=== PATIENT | female | born 1950 | race African-American/Black ===

== ENCOUNTER 2019-02-13 00:35 | Inpatient (IN) | payer MEDICARE, OTHER ==
[~2019-02-13] VITALS: Ht 160 cm; Wt 79.4 kg
[2019-02-13 01:01] LABS: BASOPHILS % 1.3 % (0.0-2.0); EOSINOPHILS % 1.9 % (0.0-5.0); HEMATOCRIT. 41.4 % (36.0-48.0); HEMOGLOBIN. 13.9 g/dL (12.0-16.0); MEAN CORPUSCULAR HEMOGLOBIN 29.7 pg (28.0-32.0); MEAN CORPUSCULAR VOLUME 88.6 fL (81.0-99.0); MEAN PLATELET VOLUME 8.5 fl (7.4-10.4); MONOCYTES % 7.7 % (2.0-8.0); NEUTROPHILS % 46.1 % (40.0-76.0); PLATELET 273 x1000/uL (130-400); RED BLOOD CELL COUNT 4.68 mill/uL (4.2-5.4); RED CELL DISTRIBUTION WIDTH 13.9 % (11.6-14.6)
[2019-02-13 01:08] LABS: CHLORIDE 108 mEq/L (98-107)
[2019-02-13 01:09] LABS: PROTHROMBIN TIME 10.1 sec (9.6-11.0)
[2019-02-13 01:12] LABS: ETHANOL BLOOD < 10 mg/dL
[2019-02-13 01:23] LABS: LDL CHOLESTEROL 166 mg/dL (5-100)
[2019-02-13] MEDS ORDERED: HYDRALAZINE 20MG/ML VIAL IV ONE (02:45)
[2019-02-13 03:43] LABS: CLARITY URINE CLEAR (CLEAR); COLOR URINE YELLOW (YELLOW); KETONES URINE NEGATIVE (NEGATIVE); LEUKOCYTE ESTERASE URINE 2+ (NEGATIVE); NITRITE URINE NEGATIVE (NEGATIVE); OCCULT BLOOD URINE NEGATIVE (NEGATIVE); PH URINE 7.5 (4.5-8.0); PROTEIN URINE NEGATIVE (NEGATIVE); SPECIFIC GRAVITY URINE 1.004 (1.005-1.030); UROBILINOGEN URINE 0.2 E.U./dL (0.2-1.0)
[2019-02-13 03:55] LABS: *AMPHETAMINES SCREEN URINE NEGATIVE (NEGATIVE); *BARBITURATES SCREEN URINE NEGATIVE (NEGATIVE); *BENZODIAZEPINES SCREEN URINE NEGATIVE (NEGATIVE); *COCAINE SCREEN URINE NEGATIVE (NEGATIVE); METHADONE URINE SCREEN NEGATIVE (NEGATIVE); OPIATES URINE SCREEN NEGATIVE (NEGATIVE)
[2019-02-13 03:56] LABS: CANNABINOID URINE SCREEN NEGATIVE (NEGATIVE); PHENCYCLIDINE URINE SCREEN NEGATIVE (NEGATIVE)
[2019-02-13 06:10] VITALS: BP 150/60
[2019-02-13] MEDS ORDERED: MAGNESIUM/ALUMINUM HYDROXIDE/SIMETHICONE 30ML UDC PO PRN (07:30)
[2019-02-13] MEDS ORDERED: DIPHENHYDRAMINE 50MG/ML VIAL IV PRN (07:30)
[2019-02-13] MEDS ORDERED: GUAIFENESIN 200MG/10ML SUGAR FREE UDC PO PRN (07:30)
[2019-02-13] MEDS ORDERED: CLONIDINE 0.1MG TABLET PO PRN (07:30)
[2019-02-13] MEDS ORDERED: IPRATROPIUM/ALBUTEROL 0.5-3(2.5)MG/3ML NEB INH PRN (07:30)
[2019-02-13] MEDS ORDERED: LORAZEPAM 2MG/ML CPJ IV PRN (07:30)
[2019-02-13 08:00] VITALS: BP 108/62
[2019-02-13 08:07] VITALS: BP 108/62
[2019-02-13] MEDS ORDERED: ASPI-1158 MT (08:19)
[2019-02-13] MEDS ORDERED: LABE200T28 MT (08:19)
[2019-02-13] MEDS ORDERED: LOSA100T14 MT (08:19)
[2019-02-13] MEDS ORDERED: LEVO50TA8 MT (08:19)
[2019-02-13] MEDS: ASPIRIN 81MG EC TABLET PO SCH (09:02)
[2019-02-13] MEDS: ENOXAPARIN 40MG/0.4ML SYR SUBCUT SCH (09:02)
[2019-02-13 12:00] VITALS: BP 106/59
[2019-02-13] MEDS: SODIUM CHLORIDE 0.9% INJ 3ML FLUSH IVF SCH ×2 (14:40→22:59)
[2019-02-13 16:00] VITALS: BP 106/67
[2019-02-13 17:01] LABS: CREATINE KINASE 85 IU/L (26-192)
[2019-02-13 20:00] VITALS: BP 138/81
[2019-02-13] MEDS: ACETAMINOPHEN 325MG TABLET PO PRN (20:09)
[2019-02-13] MEDS: ATORVASTATIN CALCIUM 40MG TABLET PO SCH (20:10)
[2019-02-14] VITALS: BP 128/70
[2019-02-14 01:02] LABS: CREATINE KINASE 69 IU/L (26-192)
[2019-02-14 01:03] LABS: CREATINE KINASE MB FRACTION < 1.0 ng/mL (0.5-3.6)
[2019-02-14 04:00] VITALS: BP 134/69
[2019-02-14] MEDS: SODIUM CHLORIDE 0.9% INJ 3ML FLUSH IVF SCH ×3 (05:46→21:31)
[2019-02-14 06:21] LABS: BASOPHILS % 0.7 % (0.0-2.0); EOSINOPHILS % 1.7 % (0.0-5.0); HEMATOCRIT. 36.6 % (36.0-48.0); HEMOGLOBIN. 12.4 g/dL (12.0-16.0); LYMPHOCYTES % 45.6 % (20.0-50.0); MEAN CORPUSCULAR HEMOGLOBIN 29.9 pg (28.0-32.0); MEAN CORPUSCULAR VOLUME 88.6 fL (81.0-99.0); MEAN PLATELET VOLUME 8.7 fl (7.4-10.4); PLATELET 266 x1000/uL (130-400); RED BLOOD CELL COUNT 4.14 mill/uL (4.2-5.4); RED CELL DISTRIBUTION WIDTH 14.1 % (11.6-14.6)
[2019-02-14 06:48] LABS: CHLORIDE 107 mEq/L (98-107)
[2019-02-14 06:59] LABS: HDL CHOLESTEROL 59 mg/dL (40-59); T4 FREE 0.94 ng/dL (0.76-1.46)
[2019-02-14 07:00] LABS: LDL CHOLESTEROL 132 mg/dL (5-100)
[2019-02-14 08:00] VITALS: BP 134/87
[2019-02-14] MEDS: ASPIRIN 81MG EC TABLET PO SCH (08:06)
[2019-02-14] MEDS: ACETAMINOPHEN 325MG TABLET PO PRN ×2 (08:06→21:08)
[2019-02-14] MEDS: ENOXAPARIN 40MG/0.4ML SYR SUBCUT SCH (08:06)
[2019-02-14] MEDS: ATORVASTATIN CALCIUM 40MG TABLET PO SCH (20:57)
[2019-02-15] VITALS (7 sets, daily range): BP systolic 164–213; BP diastolic 85–113
[2019-02-15] MEDS: SODIUM CHLORIDE 0.9% INJ 3ML FLUSH IVF SCH (05:15)
[2019-02-15] MEDS: ACETAMINOPHEN 325MG TABLET PO PRN ×2 (07:49→17:25)
[2019-02-15] MEDS: ENOXAPARIN 40MG/0.4ML SYR SUBCUT SCH (08:59)
[2019-02-15] MEDS: ASPIRIN 81MG EC TABLET PO SCH (08:59)
[2019-02-15] MEDS: HYDRALAZINE 20MG/ML VIAL IV PRN ×2 (09:00→17:17)
[2019-02-15] MEDS: ONDANSETRON HCL 4MG/2ML INJ IV PRN ×3 (10:01→22:45)
[2019-02-15] MEDS: BLOOD SUGAR DIAGNOSTIC STRIP TEST SCH ×3 (11:10→21:24)
[2019-02-15 11:23] LABS: PROTHROMBIN TIME 10.1 sec (9.6-11.0)
[2019-02-15] MEDS ORDERED: HYDRALAZINE 20MG/ML VIAL IV SCH (11:48)
[2019-02-15 11:54] LABS: BG BASE EXCESS -0.1 mmol/L (-2.0-2.0); BG CARBOXYHEMOGLOBIN 1.1 % (0.5-1.5); BG DEOXYHEMOGLOBIN 6.9 % (0.0-5.0); BG METHEMOGLOBIN 0.3 % (0.0-1.5); BG OXYHEMOGLOBIN 91.7 % (94.0-97.0); BG PCO2 42.4 mmHg (35.0-45.0); BG PH 7.388 (7.350-7.450); BG PO2 64.6 mmHg (75.0-100.0); BG SAMPLE SITE RIGHT RADIAL; BG TOTAL HEMOGLOBIN 14.4 g/dL (12.0-18.0); BG VENT MODE NASAL CANNULA
[2019-02-15] MEDS: CLOPIDOGREL 75MG TABLET PO SCH (11:56)
[2019-02-15] MEDS ORDERED: LORAZEPAM 2MG/ML CPJ IV PRN (12:00)
[2019-02-15] MEDS ORDERED: BLOOD SUGAR DIAGNOSTIC STRIP TEST SCH (12:10)
[2019-02-15] MEDS ORDERED: IOHEXOL-350 100 ML BOTTLE ONE (14:12)
[2019-02-15] MEDS ORDERED: CLONIDINE 0.2MG TABLET PO NR (19:30)
[2019-02-15] MEDS: CLONIDINE 0.1MG TABLET PO PRN (20:38)
[2019-02-15] MEDS: AMITRIPTYLINE 25MG TABLET PO SCH (21:12)
[2019-02-15] MEDS: METOPROLOL TARTRATE 25MG TABLET PO SCH (21:12)
[2019-02-15] MEDS: ATORVASTATIN CALCIUM 40MG TABLET PO SCH (21:12)
[2019-02-15] MEDS ORDERED: DEXTROSE 50% WATER 50ML SYRINGE IV PRN (21:30)
[2019-02-15 21:45] LABS: HEMATOCRIT. 39.7 % (36.0-48.0); HEMOGLOBIN. 13.5 g/dL (12.0-16.0); MEAN CORPUSCULAR HEMOGLOBIN 29.9 pg (28.0-32.0); MEAN CORPUSCULAR VOLUME 88.2 fL (81.0-99.0); MEAN PLATELET VOLUME 8.8 fl (7.4-10.4); PLATELET 278 x1000/uL (130-400); RED BLOOD CELL COUNT 4.51 mill/uL (4.2-5.4); RED CELL DISTRIBUTION WIDTH 13.9 % (11.6-14.6)
[2019-02-15 21:52] LABS: CHLORIDE 104 mEq/L (98-107)
[2019-02-15 22:28] LABS: PLATELET ESTIMATE NORMAL
[2019-02-15] MEDS: TRAMADOL 50MG TABLET PO PRN (22:46)
[2019-02-16] VITALS (12 sets, daily range): BP systolic 119–171; BP diastolic 67–94
[2019-02-16] MEDS: HYDRALAZINE 20MG/ML VIAL IV PRN (05:17)
[2019-02-16] MEDS: ONDANSETRON HCL 4MG/2ML INJ IV PRN (05:17)
[2019-02-16] MEDS: TRAMADOL 50MG TABLET PO PRN ×2 (05:18→20:06)
[2019-02-16] MEDS: CLONIDINE 0.1MG TABLET PO PRN (06:53)
[2019-02-16] MEDS: BLOOD SUGAR DIAGNOSTIC STRIP TEST SCH ×4 (06:54→21:00)
[2019-02-16] MEDS: CLOPIDOGREL 75MG TABLET PO SCH (10:05)
[2019-02-16] MEDS: ENOXAPARIN 40MG/0.4ML SYR SUBCUT SCH (10:06)
[2019-02-16] MEDS: ASPIRIN 81MG EC TABLET PO SCH (10:06)
[2019-02-16] MEDS: METOPROLOL TARTRATE 25MG TABLET PO SCH ×2 (10:06→20:47)
[2019-02-16] MEDS: INSULIN LISPRO 100 UNITS/ML SUBCUT SCH ×3 (12:28→21:00)
[2019-02-16 13:29] LABS: T4 FREE 0.87 ng/dL (0.76-1.46)
[2019-02-16] MEDS: ACETAMINOPHEN 325MG TABLET PO PRN (14:14)
[2019-02-16] MEDS: LOSARTAN POTASSIUM 25 MG TABLET PO SCH (18:26)
[2019-02-16] MEDS: ATORVASTATIN CALCIUM 40MG TABLET PO SCH (20:47)
[2019-02-16] MEDS: AMITRIPTYLINE 25MG TABLET PO SCH (20:47)
[2019-02-16] MEDS: IPRATROPIUM/ALBUTEROL 0.5-3(2.5)MG/3ML NEB HHN SCH (21:33)
[2019-02-16 23:39] LABS: *AMPHETAMINES SCREEN URINE NEGATIVE (NEGATIVE); *BARBITURATES SCREEN URINE NEGATIVE (NEGATIVE); *BENZODIAZEPINES SCREEN URINE NEGATIVE (NEGATIVE); *COCAINE SCREEN URINE NEGATIVE (NEGATIVE)
[2019-02-16 23:40] LABS: CANNABINOID URINE SCREEN NEGATIVE (NEGATIVE); METHADONE URINE SCREEN NEGATIVE (NEGATIVE); OPIATES URINE SCREEN NEGATIVE (NEGATIVE); PHENCYCLIDINE URINE SCREEN NEGATIVE (NEGATIVE)
[2019-02-17] VITALS (13 sets, daily range): BP systolic 114–160; BP diastolic 65–101
[2019-02-17] MEDS: IPRATROPIUM/ALBUTEROL 0.5-3(2.5)MG/3ML NEB HHN SCH ×4 (01:49→19:56)
[2019-02-17] MEDS ORDERED: LIDOCAINE HCL/PF 1% 2ML VIAL ONE (05:00)
[2019-02-17 06:31] LABS: BASOPHILS % 0.5 % (0.0-2.0); EOSINOPHILS % 0.7 % (0.0-5.0); HEMATOCRIT. 36.9 % (36.0-48.0); HEMOGLOBIN. 12.4 g/dL (12.0-16.0); LYMPHOCYTES % 41.1 % (20.0-50.0); MEAN CORPUSCULAR HEMOGLOBIN 29.6 pg (28.0-32.0); MEAN CORPUSCULAR VOLUME 88.4 fL (81.0-99.0); MEAN PLATELET VOLUME 8.4 fl (7.4-10.4); MONOCYTES % 7.9 % (2.0-8.0); NEUTROPHILS % 49.8 % (40.0-76.0); PLATELET 261 x1000/uL (130-400); RED BLOOD CELL COUNT 4.18 mill/uL (4.2-5.4); RED CELL DISTRIBUTION WIDTH 13.9 % (11.6-14.6)
[2019-02-17] MEDS: TRAMADOL 50MG TABLET PO PRN (06:41)
[2019-02-17] MEDS: BLOOD SUGAR DIAGNOSTIC STRIP TEST SCH ×4 (06:45→21:00)
[2019-02-17] MEDS: INSULIN LISPRO 100 UNITS/ML SUBCUT SCH ×4 (06:45→22:15)
[2019-02-17 07:01] LABS: CHLORIDE 104 mEq/L (98-107)
[2019-02-17 07:12] LABS: HDL CHOLESTEROL 59 mg/dL (40-59)
[2019-02-17 07:13] LABS: LDL CHOLESTEROL 100 mg/dL (5-100)
[2019-02-17 07:24] LABS: BG BASE EXCESS 1.8 mmol/L (-2.0-2.0); BG CARBOXYHEMOGLOBIN 0.4 % (0.5-1.5); BG DEOXYHEMOGLOBIN 6.5 % (0.0-5.0); BG HCO3 ACT 27.7 mmol/L (22.0-26.0); BG METHEMOGLOBIN 0.4 % (0.0-1.5); BG OXYGEN SATURATION 93.4 % (92.0-98.5); BG OXYHEMOGLOBIN 92.7 % (94.0-97.0); BG PCO2 48.3 mmHg (35.0-45.0); BG PH 7.376 (7.350-7.450); BG PO2 68.8 mmHg (75.0-100.0); BG SAMPLE SITE RIGHT RADIAL; BG TOTAL HEMOGLOBIN 12.8 g/dL (12.0-18.0); BG VENT MODE ROOM AIR
[2019-02-17] MEDS: METOPROLOL TARTRATE 25MG TABLET PO SCH ×2 (09:00→19:50)
[2019-02-17] MEDS: CLOPIDOGREL 75MG TABLET PO SCH (10:19)
[2019-02-17] MEDS: LOSARTAN POTASSIUM 25 MG TABLET PO SCH ×2 (10:19→17:00)
[2019-02-17] MEDS: ASPIRIN 81MG EC TABLET PO SCH (10:19)
[2019-02-17] MEDS: DOCUSATE SODIUM 100MG CAPSULE PO PRN (10:19)
[2019-02-17] MEDS: ENOXAPARIN 40MG/0.4ML SYR SUBCUT SCH (10:20)
[2019-02-17] MEDS: ACETAMINOPHEN 325MG TABLET PO PRN (19:50)
[2019-02-17] MEDS: BUDESONIDE 0.5MG/2ML NEB HHN SCH (19:57)
[2019-02-17] MEDS: SODIUM CHLORIDE 0.9% INJ 3ML FLUSH IVF SCH (22:00)
[2019-02-17] MEDS: ATORVASTATIN CALCIUM 40MG TABLET PO SCH (22:01)
[2019-02-17] MEDS: FAMOTIDINE 20MG/2ML VIAL IV SCH (22:01)
[2019-02-17] MEDS: AMITRIPTYLINE 25MG TABLET PO SCH (22:01)
[2019-02-18] VITALS (10 sets, daily range): BP systolic 107–149; BP diastolic 61–98
[2019-02-18] MEDS: IPRATROPIUM/ALBUTEROL 0.5-3(2.5)MG/3ML NEB HHN SCH ×3 (02:25→12:16)
[2019-02-18] MEDS: DOCUSATE SODIUM 100MG CAPSULE PO PRN ×2 (05:56→12:05)
[2019-02-18] MEDS: SODIUM CHLORIDE 0.9% INJ 3ML FLUSH IVF SCH ×2 (06:00→15:05)
[2019-02-18] MEDS: BLOOD SUGAR DIAGNOSTIC STRIP TEST SCH ×2 (07:30→12:05)
[2019-02-18] MEDS: BUDESONIDE 0.5MG/2ML NEB HHN SCH (07:56)
[2019-02-18] MEDS: INSULIN LISPRO 100 UNITS/ML SUBCUT SCH ×2 (08:00→12:06)
[2019-02-18 09:48] LABS: BG BASE EXCESS -0.5 mmol/L (-2.0-2.0); BG CARBOXYHEMOGLOBIN 0.9 % (0.5-1.5); BG DEOXYHEMOGLOBIN 4.2 % (0.0-5.0); BG FRACTION INSPIRED OXYGEN 21; BG HCO3 ACT 24.5 mmol/L (22.0-26.0); BG METHEMOGLOBIN 0.2 % (0.0-1.5); BG OXYGEN SATURATION 95.8 % (92.0-98.5); BG OXYHEMOGLOBIN 94.7 % (94.0-97.0); BG PCO2 41.8 mmHg (35.0-45.0); BG PH 7.386 (7.350-7.450); BG PO2 78.7 mmHg (75.0-100.0); BG SAMPLE SITE RIGHT RADIAL; BG VENT MODE ROOM AIR
[2019-02-18] MEDS: METOPROLOL TARTRATE 25MG TABLET PO SCH (10:04)
[2019-02-18] MEDS: ENOXAPARIN 40MG/0.4ML SYR SUBCUT SCH (10:04)
[2019-02-18] MEDS: LOSARTAN POTASSIUM 25 MG TABLET PO SCH (10:05)
[2019-02-18] MEDS: CLOPIDOGREL 75MG TABLET PO SCH (10:05)
[2019-02-18] MEDS: ASPIRIN 81MG EC TABLET PO SCH (10:05)
[2019-02-18] MEDS: FAMOTIDINE 20MG/2ML VIAL IV SCH (10:05)
[2019-02-18] MEDS: TRAMADOL 50MG TABLET PO PRN (10:07)
== END 2019-02-18 16:44 | disposition home or self-care (01) | DRG 243 ==
LOC: ER 00:50 → 5WST 02:42 → ENRESERV 04:58 → 5WST 07:37 → 8WST 02-15 08:33 → 5EST 02-15 13:00
PROVIDERS: ADMIT Internal Medicine; ATTEND Internal Medicine
DX: K21.9 Gastro-esophageal reflux disease without esophagitis (principal); J96.00 Acute respiratory failure, unspecified whether with hypoxia or hypercapnia; E87.8 Other disorders of electrolyte and fluid balance, not elsewhere classified; E05.90 Thyrotoxicosis, unspecified without thyrotoxic crisis or storm; I10 Essential (primary) hypertension; E78.5 Hyperlipidemia, unspecified; R42 Dizziness and giddiness; R51 Headache; H53.8 Other visual disturbances; F41.9 Anxiety disorder, unspecified; R53.1 Weakness; E89.0 Postprocedural hypothyroidism; Z79.82 Long term (current) use of aspirin; Z87.891 Personal history of nicotine dependence; Z79.899 Other long term (current) drug therapy; Z88.6 Allergy status to analgesic agent
CPT/HCPCS: 36415; 36600; 70496; 70551; 71045; 72141; 73502; 80048; 80061; 80305; 80320; 82375; 82550; 82553; 82805; 82962; 83721; 83735; 83880; 84439; 84443; 84481; 84484; 85379; 85384; 93005; 93306; 93880; 93970; 97162; 97166; 99285; C1893; J0360; J1650; J1815; J2405; J3490; J7620; J7626; Q9967; G0480

== ENCOUNTER 2021-07-11 12:59 | Inpatient (IN) | payer MEDICARE, MEDICAID ==
[~2021-07-11] VITALS: Ht 167.6 cm; Wt 91.6 kg
[~2021-07-11 12:59] MED LIST: ASPI-1406 MT; LABE200T9 MT; LEVO50TA8 MT; LOSA100T32 MT
[2021-07-11] MEDS ORDERED: CEFTRIAXONE 1 G PREMIX 50 ML IV ONE (14:15)
[2021-07-11] MEDS ORDERED: DEXAMETHASONE 10 MG/ML VIAL IV ONE (14:15)
[2021-07-11] MEDS ORDERED: AZITHROMYCIN 500 MG in DEXT 5% WATER 250 ML IV SCH (14:15)
[2021-07-11 14:47] LABS: BG BASE EXCESS 1.9 mmol/L (-2.0-2.0); BG CARBOXYHEMOGLOBIN 0.2 % (0.5-1.5); BG DEOXYHEMOGLOBIN 4.5 % (0.0-5.0); BG FRACTION INSPIRED OXYGEN 36; BG HCO3 ACT 25.3 mmol/L (22.0-26.0); BG METHEMOGLOBIN 0.3 % (0.0-1.5); BG OXYGEN SATURATION 95.5 % (92.0-98.5); BG PCO2 35.5 mmHg (35.0-45.0); BG PO2 82.3 mmHg (75.0-100.0); BG SAMPLE SITE RIGHT RADIAL; BG VENT MODE NASAL CANNULA
[2021-07-11 14:50] LABS: CHLORIDE 96 mEq/L (98-107)
[2021-07-11 14:53] LABS: PROTHROMBIN TIME 10.8 sec (9.6-11.0)
[2021-07-11 15:20] LABS: BASOPHILS % 0.4 % (0.0-2.0); HEMATOCRIT. 34.2 % (36.0-48.0); HEMOGLOBIN. 11.9 g/dL (12.0-16.0); LYMPHOCYTES % 16.9 % (20.0-50.0); MEAN CORPUSCULAR HEMOGLOBIN 29.9 pg (28.0-32.0); MEAN CORPUSCULAR VOLUME 86.2 fL (81.0-99.0); MEAN PLATELET VOLUME 7.3 fl (7.4-10.4); MONOCYTES % 4.8 % (2.0-8.0); NEUTROPHILS % 77.9 % (40.0-76.0); PLATELET 274 x1000/uL (130-400); RED BLOOD CELL COUNT 3.97 mill/uL (4.2-5.4); RED CELL DISTRIBUTION WIDTH 13.4 % (11.6-14.6)
[2021-07-11] MEDS: HYDRALAZINE 20MG/ML VIAL IV PRN (19:54)
[2021-07-11] MEDS: GUAIFENESIN 200MG/10ML SUGAR FREE UDC PO PRN (19:55)
[2021-07-11 21:04] VITALS: BP_SYST 138; BP_SYST 169; BP_DIAS 90
[2021-07-11] MEDS ORDERED: CEFTRIAXONE 1 G PREMIX 50 ML IV SCH (21:15)
[2021-07-11] MEDS ORDERED: ALBUTEROL 6.7GM HFA INHALER ORI PRN (21:15)
[2021-07-11] MEDS ORDERED: DEXTROSE 50% WATER 50ML SYRINGE IV PRN (21:45)
[2021-07-11] MEDS: ENOXAPARIN 40MG/0.4ML SYR SUBCUT SCH (22:25)
[2021-07-11] MEDS: ACETAMINOPHEN 325MG TABLET PO PRN (23:14)
[2021-07-12] VITALS (8 sets, daily range): BP systolic 132–186; BP diastolic 71–96
[2021-07-12] MEDS ORDERED: HYDRALAZINE 20MG/ML VIAL IV SCH
[2021-07-12] MEDS: CLONIDINE 0.1MG TABLET PO PRN (04:17)
[2021-07-12 06:52] LABS: CHLORIDE 101 mEq/L (98-107)
[2021-07-12 06:54] LABS: BASOPHILS % 0.2 % (0.0-2.0); HEMATOCRIT. 38.7 % (36.0-48.0); HEMOGLOBIN. 13.1 g/dL (12.0-16.0); LYMPHOCYTES % 12.7 % (20.0-50.0); MEAN CORPUSCULAR HEMOGLOBIN 29.4 pg (28.0-32.0); MEAN CORPUSCULAR VOLUME 86.6 fL (81.0-99.0); MEAN PLATELET VOLUME 7.6 fl (7.4-10.4); MONOCYTES % 6.7 % (2.0-8.0); NEUTROPHILS % 80.4 % (40.0-76.0); PLATELET 347 x1000/uL (130-400); RED BLOOD CELL COUNT 4.47 mill/uL (4.2-5.4); RED CELL DISTRIBUTION WIDTH 13.7 % (11.6-14.6)
[2021-07-12 07:02] LABS: LDL CHOLESTEROL 91 mg/dL (5-100)
[2021-07-12 07:03] LABS: HDL CHOLESTEROL 59 mg/dL (40-59)
[2021-07-12] MEDS: BLOOD SUGAR DIAGNOSTIC STRIP TEST SCH ×4 (07:40→20:37)
[2021-07-12] MEDS: HYDRALAZINE 20MG/ML VIAL IV PRN ×2 (08:06→20:31)
[2021-07-12] MEDS: DEXAMETHASONE 10 MG/ML VIAL IV SCH (08:06)
[2021-07-12] MEDS: INSULIN LISPRO 100 UNITS/ML SUBCUT SCH ×4 (08:14→20:37)
[2021-07-12] MEDS: ACETAMINOPHEN 325MG TABLET PO PRN ×3 (11:38→20:40)
[2021-07-12] MEDS ORDERED: GUAIFENESIN-DM 200MG-20MG/10ML UDC PO PRN (12:45)
[2021-07-12] MEDS: GUAIFENESIN 200MG/10ML SUGAR FREE UDC PO PRN (13:10)
[2021-07-12] MEDS: CEFTRIAXONE 1,000 MG in DEXTROSE 5% WATER 50 ML IV SCH (15:26)
[2021-07-12] MEDS: LABETALOL HCL 200MG TABLET PO SCH (16:10)
[2021-07-12] MEDS: ENOXAPARIN 40MG/0.4ML SYR SUBCUT SCH (20:30)
[2021-07-13] VITALS (7 sets, daily range): BP systolic 136–171; BP diastolic 75–93
[2021-07-13] MEDS: CLONIDINE 0.1MG TABLET PO PRN ×2 (04:21→11:40)
[2021-07-13] MEDS: ACETAMINOPHEN 325MG TABLET PO PRN ×4 (04:21→22:20)
[2021-07-13] MEDS: BLOOD SUGAR DIAGNOSTIC STRIP TEST SCH ×4 (07:40→20:45)
[2021-07-13] MEDS: INSULIN LISPRO 100 UNITS/ML SUBCUT SCH ×4 (08:10→20:45)
[2021-07-13] MEDS: GUAIFENESIN 200MG/10ML SUGAR FREE UDC PO PRN ×2 (08:24→16:34)
[2021-07-13] MEDS: LOSARTAN POTASSIUM 100 MG TABLET PO SCH (08:25)
[2021-07-13] MEDS: LABETALOL HCL 200MG TABLET PO SCH ×2 (08:25→16:34)
[2021-07-13] MEDS: LEVOTHYROXINE SODIUM 50MCG TABLET PO SCH (08:25)
[2021-07-13] MEDS: DEXAMETHASONE 10 MG/ML VIAL IV SCH (08:25)
[2021-07-13] MEDS: ALBUTEROL 6.7GM HFA INHALER ORI SCH ×2 (12:11→17:16)
[2021-07-13] MEDS: CEFTRIAXONE 1,000 MG in DEXTROSE 5% WATER 50 ML IV SCH (14:00)
[2021-07-13] MEDS: DOCUSATE SODIUM 100MG CAPSULE PO SCH (16:34)
[2021-07-13] MEDS: ENOXAPARIN 40MG/0.4ML SYR SUBCUT SCH (20:45)
[2021-07-14] VITALS: BP 174/95
[2021-07-14] MEDS: ALBUTEROL 6.7GM HFA INHALER ORI SCH ×5 (00:30→23:25)
[2021-07-14] MEDS: CLONIDINE 0.1MG TABLET PO PRN (01:22)
[2021-07-14 04:00] VITALS: BP 157/86
[2021-07-14 06:10] LABS: HEMATOCRIT. 36.7 % (36.0-48.0); HEMOGLOBIN. 12.7 g/dL (12.0-16.0); MEAN CORPUSCULAR HEMOGLOBIN 30.3 pg (28.0-32.0); MEAN CORPUSCULAR VOLUME 87.3 fL (81.0-99.0); MEAN PLATELET VOLUME 7.2 fl (7.4-10.4); PLATELET 444 x1000/uL (130-400); RED CELL DISTRIBUTION WIDTH 13.8 % (11.6-14.6)
[2021-07-14 06:12] LABS: CHLORIDE 101 mEq/L (98-107)
[2021-07-14] MEDS: BLOOD SUGAR DIAGNOSTIC STRIP TEST SCH ×4 (07:40→20:50)
[2021-07-14 07:59] VITALS: BP 156/80
[2021-07-14] MEDS: INSULIN LISPRO 100 UNITS/ML SUBCUT SCH ×4 (08:10→20:50)
[2021-07-14] MEDS: LEVOTHYROXINE SODIUM 50MCG TABLET PO SCH (08:21)
[2021-07-14] MEDS: DEXAMETHASONE 10 MG/ML VIAL IV SCH (08:22)
[2021-07-14] MEDS: DOCUSATE SODIUM 100MG CAPSULE PO SCH ×2 (08:22→15:20)
[2021-07-14] MEDS: LABETALOL HCL 200MG TABLET PO SCH ×2 (08:22→15:20)
[2021-07-14] MEDS: LOSARTAN POTASSIUM 100 MG TABLET PO SCH (08:22)
[2021-07-14] MEDS: ACETAMINOPHEN 325MG TABLET PO PRN ×3 (08:26→22:42)
[2021-07-14 10:24] LABS: PLATELET ESTIMATE INCREASED
[2021-07-14 12:00] VITALS: BP 175/98
[2021-07-14] MEDS: HYDRALAZINE 20MG/ML VIAL IV PRN (12:19)
[2021-07-14] MEDS: AMLODIPINE 10MG TABLET PO SCH (15:19)
[2021-07-14] MEDS: CEFTRIAXONE 1,000 MG in DEXTROSE 5% WATER 50 ML IV SCH (15:19)
[2021-07-14 16:00] VITALS: BP 126/86
[2021-07-14 20:00] VITALS: BP 150/85
[2021-07-14] MEDS: ENOXAPARIN 40MG/0.4ML SYR SUBCUT SCH (20:50)
[2021-07-15] VITALS: BP 135/73
[2021-07-15 04:00] VITALS: BP 155/86
[2021-07-15] MEDS: ONDANSETRON HCL 4MG/2ML INJ IV PRN ×2 (04:54→20:55)
[2021-07-15] MEDS: ALBUTEROL 6.7GM HFA INHALER ORI SCH ×3 (06:20→17:14)
[2021-07-15] MEDS: BLOOD SUGAR DIAGNOSTIC STRIP TEST SCH ×4 (07:27→20:58)
[2021-07-15] MEDS: INSULIN LISPRO 100 UNITS/ML SUBCUT SCH ×4 (07:27→21:00)
[2021-07-15 08:00] VITALS: BP 142/84
[2021-07-15] MEDS: LOSARTAN POTASSIUM 100 MG TABLET PO SCH (08:07)
[2021-07-15] MEDS: AMLODIPINE 10MG TABLET PO SCH (08:07)
[2021-07-15] MEDS: LABETALOL HCL 200MG TABLET PO SCH ×2 (08:07→17:14)
[2021-07-15] MEDS: LEVOTHYROXINE SODIUM 50MCG TABLET PO SCH (08:07)
[2021-07-15] MEDS: DEXAMETHASONE 10 MG/ML VIAL IV SCH (08:07)
[2021-07-15] MEDS: DOCUSATE SODIUM 100MG CAPSULE PO SCH ×2 (08:07→16:27)
[2021-07-15] MEDS: ACETAMINOPHEN 325MG TABLET PO PRN ×2 (08:08→20:57)
[2021-07-15 12:00] VITALS: BP 140/86
[2021-07-15] MEDS: GUAIFENESIN 200MG/10ML SUGAR FREE UDC PO PRN (12:08)
[2021-07-15] MEDS: CEFTRIAXONE 1,000 MG in DEXTROSE 5% WATER 50 ML IV SCH (14:14)
[2021-07-15 16:00] VITALS: BP 132/76
[2021-07-15 20:00] VITALS: BP 151/72
[2021-07-15] MEDS: ENOXAPARIN 40MG/0.4ML SYR SUBCUT SCH (20:58)
[2021-07-15] MEDS: DIPHENHYDRAMINE 50MG/ML VIAL IV PRN (22:25)
[2021-07-16] VITALS: BP 147/80
[2021-07-16] MEDS: ALBUTEROL 6.7GM HFA INHALER ORI SCH ×4 (00:04→17:24)
[2021-07-16 04:00] VITALS: BP 140/63
[2021-07-16] MEDS: BLOOD SUGAR DIAGNOSTIC STRIP TEST SCH ×4 (06:19→21:00)
[2021-07-16 08:00] VITALS: BP 160/92
[2021-07-16] MEDS: INSULIN LISPRO 100 UNITS/ML SUBCUT SCH ×4 (08:10→22:18)
[2021-07-16] MEDS: LEVOTHYROXINE SODIUM 50MCG TABLET PO SCH (08:22)
[2021-07-16] MEDS: AMLODIPINE 10MG TABLET PO SCH (08:49)
[2021-07-16] MEDS: HYDRALAZINE 20MG/ML VIAL IV PRN (08:50)
[2021-07-16] MEDS: DEXAMETHASONE 10 MG/ML VIAL IV SCH (08:50)
[2021-07-16] MEDS: LABETALOL HCL 200MG TABLET PO SCH ×2 (08:50→16:04)
[2021-07-16] MEDS: DOCUSATE SODIUM 100MG CAPSULE PO SCH ×2 (08:50→16:04)
[2021-07-16] MEDS: LOSARTAN POTASSIUM 100 MG TABLET PO SCH (08:50)
[2021-07-16] MEDS: ACETAMINOPHEN 325MG TABLET PO PRN ×2 (08:52→20:54)
[2021-07-16 12:00] VITALS: BP 130/75
[2021-07-16] MEDS: GUAIFENESIN 600MG ER TABLET PO SCH ×2 (12:36→21:00)
[2021-07-16 16:00] VITALS: BP 118/70
[2021-07-16] MEDS: CEFTRIAXONE 1,000 MG in DEXTROSE 5% WATER 50 ML IV SCH (16:05)
[2021-07-16 20:00] VITALS: BP 133/76
[2021-07-16] MEDS: ENOXAPARIN 40MG/0.4ML SYR SUBCUT SCH (22:14)
[2021-07-17] VITALS: BP 139/80
[2021-07-17] MEDS: ALBUTEROL 6.7GM HFA INHALER ORI SCH ×5 (03:16→22:01)
[2021-07-17 04:36] VITALS: BP 143/86
[2021-07-17] MEDS: ALBUTEROL 6.7GM HFA INHALER ORI PRN ×4 (06:33→22:01)
[2021-07-17 07:16] LABS: HEMATOCRIT. 36.3 % (36.0-48.0); HEMOGLOBIN. 11.9 g/dL (12.0-16.0); MEAN CORPUSCULAR HEMOGLOBIN 29.2 pg (28.0-32.0); MEAN CORPUSCULAR VOLUME 88.7 fL (81.0-99.0); MEAN PLATELET VOLUME 7.5 fl (7.4-10.4); PLATELET 294 x1000/uL (130-400); RED BLOOD CELL COUNT 4.09 mill/uL (4.2-5.4); RED CELL DISTRIBUTION WIDTH 13.9 % (11.6-14.6)
[2021-07-17 07:23] LABS: CHLORIDE 106 mEq/L (98-107)
[2021-07-17] MEDS: BLOOD SUGAR DIAGNOSTIC STRIP TEST SCH ×4 (07:40→21:23)
[2021-07-17 08:00] VITALS: BP 145/85
[2021-07-17] MEDS: INSULIN LISPRO 100 UNITS/ML SUBCUT SCH ×4 (08:10→21:42)
[2021-07-17] MEDS: DEXAMETHASONE 10 MG/ML VIAL IV SCH (08:32)
[2021-07-17] MEDS: LOSARTAN POTASSIUM 100 MG TABLET PO SCH (08:32)
[2021-07-17] MEDS: GUAIFENESIN 600MG ER TABLET PO SCH ×2 (08:32→21:43)
[2021-07-17] MEDS: LEVOTHYROXINE SODIUM 50MCG TABLET PO SCH (08:32)
[2021-07-17] MEDS: DOCUSATE SODIUM 100MG CAPSULE PO SCH ×2 (08:32→16:19)
[2021-07-17] MEDS: AMLODIPINE 10MG TABLET PO SCH (08:32)
[2021-07-17] MEDS: LABETALOL HCL 200MG TABLET PO SCH ×2 (08:33→16:19)
[2021-07-17 12:00] VITALS: BP 137/79
[2021-07-17] MEDS: ACETAMINOPHEN 325MG TABLET PO PRN (12:19)
[2021-07-17] MEDS: CEFTRIAXONE 1,000 MG in DEXTROSE 5% WATER 50 ML IV SCH (14:00)
[2021-07-17 16:00] VITALS: BP 143/80
[2021-07-17 19:42] LABS: PLATELET ESTIMATE NORMAL
[2021-07-17 20:00] VITALS: BP 136/78
[2021-07-17] MEDS: ENOXAPARIN 40MG/0.4ML SYR SUBCUT SCH (21:41)
[2021-07-17] MEDS: DIPHENHYDRAMINE 50MG/ML VIAL IV PRN (21:43)
[2021-07-18] VITALS: BP 126/71
[2021-07-18] MEDS: ACETAMINOPHEN 325MG TABLET PO PRN ×3 (01:06→16:48)
[2021-07-18] MEDS: ALBUTEROL 6.7GM HFA INHALER ORI SCH ×3 (05:42→18:11)
[2021-07-18] MEDS: BLOOD SUGAR DIAGNOSTIC STRIP TEST SCH ×4 (07:40→20:07)
[2021-07-18 08:00] VITALS: BP 145/79
[2021-07-18] MEDS: INSULIN LISPRO 100 UNITS/ML SUBCUT SCH ×4 (08:10→20:07)
[2021-07-18] MEDS: LEVOTHYROXINE SODIUM 50MCG TABLET PO SCH (08:14)
[2021-07-18] MEDS: DEXAMETHASONE 10 MG/ML VIAL IV SCH (08:14)
[2021-07-18] MEDS: GUAIFENESIN 600MG ER TABLET PO SCH ×2 (08:14→20:07)
[2021-07-18] MEDS: DOCUSATE SODIUM 100MG CAPSULE PO SCH ×2 (08:14→16:30)
[2021-07-18] MEDS: LABETALOL HCL 200MG TABLET PO SCH ×2 (08:15→16:31)
[2021-07-18] MEDS: LOSARTAN POTASSIUM 100 MG TABLET PO SCH (08:15)
[2021-07-18] MEDS: AMLODIPINE 10MG TABLET PO SCH (08:15)
[2021-07-18 08:38] LABS: BG BASE EXCESS 4.6 mmol/L (-2.0-2.0); BG CARBOXYHEMOGLOBIN 0.2 % (0.5-1.5); BG DEOXYHEMOGLOBIN 20.9 % (0.0-5.0); BG FRACTION INSPIRED OXYGEN 100; BG METHEMOGLOBIN 0.1 % (0.0-1.5); BG OXYHEMOGLOBIN 78.8 % (94.0-97.0); BG PCO2 42.4 mmHg (35.0-45.0); BG PH 7.453 (7.350-7.450); BG PO2 43.7 mmHg (75.0-100.0); BG SAMPLE SITE RIGHT RADIAL; BG TOTAL HEMOGLOBIN 12.9 g/dL (12.0-18.0); BG VENT MODE MASK - NRB
[2021-07-18 11:59] VITALS: BP 132/75
[2021-07-18 16:00] VITALS: BP 137/82
[2021-07-18] MEDS: ALBUTEROL 6.7GM HFA INHALER ORI PRN ×2 (17:06→18:11)
[2021-07-18 20:03] VITALS: BP 133/75
[2021-07-18] MEDS: ENOXAPARIN 40MG/0.4ML SYR SUBCUT SCH (20:07)
[2021-07-19] VITALS (7 sets, daily range): BP systolic 126–164; BP diastolic 77–92
[2021-07-19] MEDS: ALBUTEROL 6.7GM HFA INHALER ORI SCH ×4 (00:30→17:27)
[2021-07-19] MEDS: CEFEPIME 1,000 MG in DEXTROSE 5% WATER 50 ML IV SCH ×3 (01:33→21:02)
[2021-07-19] MEDS: BLOOD SUGAR DIAGNOSTIC STRIP TEST SCH ×4 (07:11→21:00)
[2021-07-19] MEDS: LEVOTHYROXINE SODIUM 50MCG TABLET PO SCH (08:01)
[2021-07-19] MEDS: DEXAMETHASONE 10 MG/ML VIAL IV SCH (08:05)
[2021-07-19] MEDS: GUAIFENESIN 600MG ER TABLET PO SCH ×2 (08:05→21:01)
[2021-07-19] MEDS: DOCUSATE SODIUM 100MG CAPSULE PO SCH ×2 (08:05→16:30)
[2021-07-19] MEDS: LABETALOL HCL 200MG TABLET PO SCH ×2 (08:05→16:31)
[2021-07-19] MEDS: AMLODIPINE 10MG TABLET PO SCH (08:06)
[2021-07-19] MEDS: INSULIN LISPRO 100 UNITS/ML SUBCUT SCH ×4 (08:06→21:00)
[2021-07-19] MEDS: LOSARTAN POTASSIUM 100 MG TABLET PO SCH (08:06)
[2021-07-19] MEDS: ENOXAPARIN 40MG/0.4ML SYR SUBCUT SCH (21:02)
[2021-07-20] VITALS: BP 173/93
[2021-07-20] MEDS: ALBUTEROL 6.7GM HFA INHALER ORI PRN (02:24)
[2021-07-20] MEDS: ALBUTEROL 6.7GM HFA INHALER ORI SCH ×4 (02:29→17:02)
[2021-07-20 04:00] VITALS: BP 166/91
[2021-07-20] MEDS: ACETAMINOPHEN 325MG TABLET PO PRN (05:41)
[2021-07-20] MEDS: HYDRALAZINE 20MG/ML VIAL IV PRN (05:42)
[2021-07-20] MEDS: BLOOD SUGAR DIAGNOSTIC STRIP TEST SCH ×4 (06:00→20:40)
[2021-07-20] MEDS ORDERED: KETOROLAC 15MG/ML VIAL IV SCH (06:45)
[2021-07-20] MEDS ORDERED: MORPHINE SULFATE 2 MG/ML CPJ (NOT FOR IM USE) IV ONE (06:45)
[2021-07-20] MEDS: INSULIN LISPRO 100 UNITS/ML SUBCUT SCH ×4 (07:12→20:40)
[2021-07-20] MEDS: LEVOTHYROXINE SODIUM 50MCG TABLET PO SCH (07:56)
[2021-07-20 08:00] VITALS: BP 138/77
[2021-07-20] MEDS: LOSARTAN POTASSIUM 100 MG TABLET PO SCH (08:00)
[2021-07-20] MEDS: DOCUSATE SODIUM 100MG CAPSULE PO SCH ×2 (08:00→17:02)
[2021-07-20] MEDS: GUAIFENESIN 600MG ER TABLET PO SCH ×2 (08:00→20:50)
[2021-07-20] MEDS: DEXAMETHASONE 10 MG/ML VIAL IV SCH (08:00)
[2021-07-20] MEDS: CEFEPIME 1,000 MG in DEXTROSE 5% WATER 50 ML IV SCH ×2 (08:01→20:49)
[2021-07-20] MEDS: LABETALOL HCL 200MG TABLET PO SCH ×2 (08:01→17:02)
[2021-07-20] MEDS: AMLODIPINE 10MG TABLET PO SCH (08:01)
[2021-07-20 08:10] LABS: HEMATOCRIT. 38.7 % (36.0-48.0); HEMOGLOBIN. 12.9 g/dL (12.0-16.0); MEAN CORPUSCULAR HEMOGLOBIN 29.1 pg (28.0-32.0); MEAN CORPUSCULAR VOLUME 87.5 fL (81.0-99.0); MEAN PLATELET VOLUME 7.8 fl (7.4-10.4); PLATELET 200 x1000/uL (130-400); RED BLOOD CELL COUNT 4.42 mill/uL (4.2-5.4); RED CELL DISTRIBUTION WIDTH 13.7 % (11.6-14.6)
[2021-07-20 08:11] LABS: CHLORIDE 107 mEq/L (98-107)
[2021-07-20 10:00] LABS: BG CARBOXYHEMOGLOBIN 0.5 % (0.5-1.5); BG DEOXYHEMOGLOBIN 5.6 % (0.0-5.0); BG FRACTION INSPIRED OXYGEN 100; BG HCO3 ACT 22.2 mmol/L (22.0-26.0); BG METHEMOGLOBIN 0.1 % (0.0-1.5); BG OXYGEN SATURATION 94.4 % (92.0-98.5); BG OXYHEMOGLOBIN 93.8 % (94.0-97.0); BG PCO2 32.5 mmHg (35.0-45.0); BG PH 7.452 (7.350-7.450); BG PO2 72.7 mmHg (75.0-100.0); BG SAMPLE SITE LEFT RADIAL; BG TOTAL HEMOGLOBIN 13.2 g/dL (12.0-18.0); BG TOTAL RESPIRATORY RATE 36 b/min; BG VENT MODE MASK - BIPAP
[2021-07-20 12:00] VITALS: BP 142/87
[2021-07-20] MEDS ORDERED: LACTULOSE 20G/30ML UDC PO NR (12:00)
[2021-07-20 16:00] VITALS: BP 146/90
[2021-07-20 17:56] LABS: PLATELET ESTIMATE NORMAL
[2021-07-20 20:00] VITALS: BP 148/90
[2021-07-20] MEDS: ENOXAPARIN 40MG/0.4ML SYR SUBCUT SCH (20:50)
[2021-07-21] VITALS (10 sets, daily range): BP systolic 107–156; BP diastolic 57–109
[2021-07-21] MEDS: ALBUTEROL 6.7GM HFA INHALER ORI SCH ×4 (00:57→17:38)
[2021-07-21] MEDS: ACETAMINOPHEN 325MG TABLET PO PRN (03:14)
[2021-07-21] MEDS: INSULIN LISPRO 100 UNITS/ML SUBCUT SCH ×4 (07:23→20:40)
[2021-07-21] MEDS: BLOOD SUGAR DIAGNOSTIC STRIP TEST SCH ×4 (07:23→20:36)
[2021-07-21] MEDS: LEVOTHYROXINE SODIUM 50MCG TABLET PO SCH (08:17)
[2021-07-21] MEDS: GUAIFENESIN 600MG ER TABLET PO SCH ×2 (08:17→20:36)
[2021-07-21] MEDS: AMLODIPINE 10MG TABLET PO SCH (08:18)
[2021-07-21] MEDS: DEXAMETHASONE 10 MG/ML VIAL IV SCH (08:18)
[2021-07-21] MEDS: LABETALOL HCL 200MG TABLET PO SCH ×2 (08:18→17:00)
[2021-07-21] MEDS: LOSARTAN POTASSIUM 100 MG TABLET PO SCH (08:18)
[2021-07-21] MEDS: DOCUSATE SODIUM 100MG CAPSULE PO SCH ×2 (08:18→17:35)
[2021-07-21] MEDS: CEFEPIME 1,000 MG in DEXTROSE 5% WATER 50 ML IV SCH ×2 (08:23→20:36)
[2021-07-21] MEDS ORDERED: PANTOPRAZOLE SODIUM 40 MG/VIAL IV NR (10:00)
[2021-07-21 17:33] LABS: HEMATOCRIT. 37.6 % (36.0-48.0); HEMOGLOBIN. 12.4 g/dL (12.0-16.0); MEAN CORPUSCULAR HEMOGLOBIN 29.4 pg (28.0-32.0); MEAN CORPUSCULAR VOLUME 88.9 fL (81.0-99.0); MEAN PLATELET VOLUME 8.4 fl (7.4-10.4); PLATELET 157 x1000/uL (130-400); RED BLOOD CELL COUNT 4.23 mill/uL (4.2-5.4); RED CELL DISTRIBUTION WIDTH 14.3 % (11.6-14.6)
[2021-07-21 17:34] LABS: CHLORIDE 113 mEq/L (98-107)
[2021-07-21 19:57] LABS: NUCLEATED RED BLOOD CELLS 1 /100 WBC; PLATELET ESTIMATE NORMAL
[2021-07-21] MEDS: ENOXAPARIN 40MG/0.4ML SYR SUBCUT SCH (20:36)
[2021-07-21 21:44] LABS: BG BASE EXCESS -3.6 mmol/L (-2.0-2.0); BG CARBOXYHEMOGLOBIN 0.6 % (0.5-1.5); BG FRACTION INSPIRED OXYGEN 100; BG HCO3 ACT 21.2 mmol/L (22.0-26.0); BG METHEMOGLOBIN 0.1 % (0.0-1.5); BG OXYGEN SATURATION 87.9 % (92.0-98.5); BG OXYHEMOGLOBIN 87.3 % (94.0-97.0); BG PCO2 37.3 mmHg (35.0-45.0); BG PH 7.372 (7.350-7.450); BG PO2 56.6 mmHg (75.0-100.0); BG SAMPLE SITE LEFT RADIAL; BG TOTAL HEMOGLOBIN 13.5 g/dL (12.0-18.0); BG VENT MODE MASK - BIPAP
[2021-07-22] VITALS (98 sets, daily range): BP systolic 56–194; BP diastolic 38–109
[2021-07-22] MEDS ORDERED: PHENYLEPHRINE 50 MG in DEXT 5% WATER 245 ML IV PRN (01:00)
[2021-07-22] MEDS: PROPOFOL 10MG/ML 100ML 100 ML IV PRN ×6 (01:22→22:02)
[2021-07-22 02:38] LABS: BG BASE EXCESS -4.6 mmol/L (-2.0-2.0); BG CARBOXYHEMOGLOBIN 0.7 % (0.5-1.5); BG DEOXYHEMOGLOBIN 18.2 % (0.0-5.0); BG FRACTION INSPIRED OXYGEN 100; BG HCO3 ACT 22.7 mmol/L (22.0-26.0); BG METHEMOGLOBIN 0.2 % (0.0-1.5); BG OXYGEN SATURATION 81.6 % (92.0-98.5); BG OXYHEMOGLOBIN 80.9 % (94.0-97.0); BG PCO2 51.5 mmHg (35.0-45.0); BG PH 7.263 (7.350-7.450); BG PO2 53.3 mmHg (75.0-100.0); BG SAMPLE SITE LEFT RADIAL; BG TOTAL HEMOGLOBIN 13.2 g/dL (12.0-18.0); BG VENT MODE VENT - AC
[2021-07-22] MEDS: FENTANYL CITRATE/PF 2,500 MCG in SODIUM CHLORIDE 0.9% 200 ML IV PRN ×2 (04:42→22:57)
[2021-07-22] MEDS: MIDAZOLAM HCL 100 MG in SODIUM CHLORIDE 0.9% 80 ML IV PRN ×2 (04:43→22:01)
[2021-07-22 05:30] LABS: BG BASE EXCESS -3.7 mmol/L (-2.0-2.0); BG CARBOXYHEMOGLOBIN 0.8 % (0.5-1.5); BG DEOXYHEMOGLOBIN 5.1 % (0.0-5.0); BG FRACTION INSPIRED OXYGEN 100; BG HCO3 ACT 22.5 mmol/L (22.0-26.0); BG METHEMOGLOBIN 0.3 % (0.0-1.5); BG OXYGEN SATURATION 94.8 % (92.0-98.5); BG OXYHEMOGLOBIN 93.8 % (94.0-97.0); BG PCO2 45.1 mmHg (35.0-45.0); BG PH 7.316 (7.350-7.450); BG PO2 83.7 mmHg (75.0-100.0); BG SAMPLE SITE LEFT RADIAL; BG TOTAL HEMOGLOBIN 13.2 g/dL (12.0-18.0); BG VENT MODE VENT - AC
[2021-07-22] MEDS: INSULIN LISPRO 100 UNITS/ML SUBCUT SCH ×4 (06:15→23:42)
[2021-07-22] MEDS: BLOOD SUGAR DIAGNOSTIC STRIP TEST SCH ×4 (06:36→23:12)
[2021-07-22] MEDS: LEVOTHYROXINE SODIUM 50MCG TABLET PO SCH (06:42)
[2021-07-22] MEDS: PHENYLEPHRINE 100 MG in DEXT 5% WATER 240 ML IV PRN (08:21)
[2021-07-22] MEDS: DEXAMETHASONE 10 MG/ML VIAL IV SCH (08:21)
[2021-07-22] MEDS: DOCUSATE SODIUM 100MG CAPSULE PO SCH ×2 (08:41→17:14)
[2021-07-22] MEDS: LOSARTAN POTASSIUM 100 MG TABLET PO SCH (08:41)
[2021-07-22] MEDS: LABETALOL HCL 200MG TABLET PO SCH ×2 (08:42→17:00)
[2021-07-22] MEDS: AMLODIPINE 10MG TABLET PO SCH (08:42)
[2021-07-22] MEDS: GUAIFENESIN 600MG ER TABLET PO SCH ×2 (08:42→20:47)
[2021-07-22] MEDS ORDERED: ETOMIDATE 2MG/ML 10ML VIAL IV ONE (08:44)
[2021-07-22] MEDS: CEFEPIME 1,000 MG in DEXTROSE 5% WATER 50 ML IV SCH (08:44)
[2021-07-22] MEDS ORDERED: ATROPINE SULFATE 1MG/10ML SYR ONE (08:44)
[2021-07-22] MEDS ORDERED: SUCCINYLCHOLINE CHLORIDE 200MG/10ML IV ONE (08:44)
[2021-07-22] MEDS: ALBUTEROL 6.7GM HFA INHALER ORI SCH ×3 (13:08→21:20)
[2021-07-22] MEDS: PANTOPRAZOLE SODIUM 40 MG/VIAL IV SCH (17:31)
[2021-07-22] MEDS: MEROPENEM 1,000 MG in SODIUM CHLORIDE 0.9% 100 ML IV SCH (19:45)
[2021-07-22] MEDS: ENOXAPARIN 40MG/0.4ML SYR SUBCUT SCH (20:48)
[2021-07-23] VITALS (92 sets, daily range): BP systolic 82–132; BP diastolic 47–74
[2021-07-23] MEDS: MEROPENEM 1,000 MG in SODIUM CHLORIDE 0.9% 100 ML IV SCH ×3 (02:46→18:14)
[2021-07-23] MEDS: PHENYLEPHRINE 100 MG in DEXT 5% WATER 240 ML IV PRN (02:46)
[2021-07-23] MEDS: PROPOFOL 10MG/ML 100ML 100 ML IV PRN ×4 (02:48→22:01)
[2021-07-23] MEDS: ALBUTEROL 6.7GM HFA INHALER ORI SCH ×4 (03:50→21:11)
[2021-07-23] MEDS: INSULIN LISPRO 100 UNITS/ML SUBCUT SCH ×3 (05:28→18:13)
[2021-07-23] MEDS: BLOOD SUGAR DIAGNOSTIC STRIP TEST SCH ×3 (05:28→17:53)
[2021-07-23 05:57] LABS: HEMATOCRIT. 35.4 % (36.0-48.0); MEAN CORPUSCULAR HEMOGLOBIN 29.6 pg (28.0-32.0); MEAN CORPUSCULAR VOLUME 87.1 fL (81.0-99.0); MEAN PLATELET VOLUME 8.9 fl (7.4-10.4); PLATELET 157 x1000/uL (130-400); RED BLOOD CELL COUNT 4.06 mill/uL (4.2-5.4); RED CELL DISTRIBUTION WIDTH 13.9 % (11.6-14.6)
[2021-07-23 06:16] LABS: CHLORIDE 113 mEq/L (98-107)
[2021-07-23] MEDS: LEVOTHYROXINE SODIUM 50MCG TABLET PO SCH (07:03)
[2021-07-23] MEDS: DEXAMETHASONE 10 MG/ML VIAL IV SCH (08:14)
[2021-07-23] MEDS: PANTOPRAZOLE SODIUM 40 MG/VIAL IV SCH (08:14)
[2021-07-23] MEDS: GUAIFENESIN 600MG ER TABLET PO SCH ×2 (08:15→21:59)
[2021-07-23] MEDS: LOSARTAN POTASSIUM 100 MG TABLET PO SCH (08:16)
[2021-07-23] MEDS: AMLODIPINE 10MG TABLET PO SCH (08:16)
[2021-07-23] MEDS: LABETALOL HCL 200MG TABLET PO SCH ×2 (08:16→16:40)
[2021-07-23] MEDS: DOCUSATE SODIUM SUGAR FREE 100MG/10ML UDC NG SCH ×2 (08:19→17:53)
[2021-07-23 11:57] LABS: BG CARBOXYHEMOGLOBIN 0.1 % (0.5-1.5); BG DEOXYHEMOGLOBIN 1.8 % (0.0-5.0); BG FRACTION INSPIRED OXYGEN 100; BG HCO3 ACT 22.3 mmol/L (22.0-26.0); BG METHEMOGLOBIN 0.2 % (0.0-1.5); BG OXYGEN SATURATION 98.2 % (92.0-98.5); BG OXYHEMOGLOBIN 97.9 % (94.0-97.0); BG PCO2 40.7 mmHg (35.0-45.0); BG PH 7.356 (7.350-7.450); BG PO2 138.9 mmHg (75.0-100.0); BG SAMPLE SITE LEFT RADIAL; BG TOTAL HEMOGLOBIN 12.5 g/dL (12.0-18.0); BG VENT MODE VENT - AC
[2021-07-23] MEDS: FENTANYL CITRATE/PF 2,500 MCG in SODIUM CHLORIDE 0.9% 200 ML IV PRN ×2 (12:13→22:20)
[2021-07-23 13:44] LABS: PLATELET ESTIMATE NORMAL
[2021-07-23] MEDS: ENOXAPARIN 40MG/0.4ML SYR SUBCUT SCH (21:59)
[2021-07-23] MEDS ORDERED: PROPOFOL 10MG/ML 100ML 100 ML IV PRN (22:45)
[2021-07-24] VITALS (94 sets, daily range): BP systolic 81–120; BP diastolic 49–77
[2021-07-24] MEDS: MEROPENEM 1,000 MG in SODIUM CHLORIDE 0.9% 100 ML IV SCH ×3 (02:45→17:32)
[2021-07-24 05:50] LABS: HEMATOCRIT. 35.3 % (36.0-48.0); HEMOGLOBIN. 11.6 g/dL (12.0-16.0); MEAN CORPUSCULAR HEMOGLOBIN 29.3 pg (28.0-32.0); MEAN CORPUSCULAR VOLUME 88.9 fL (81.0-99.0); MEAN PLATELET VOLUME 9.2 fl (7.4-10.4); PLATELET 168 x1000/uL (130-400); RED BLOOD CELL COUNT 3.98 mill/uL (4.2-5.4); RED CELL DISTRIBUTION WIDTH 14.3 % (11.6-14.6)
[2021-07-24] MEDS: BLOOD SUGAR DIAGNOSTIC STRIP TEST SCH ×5 (05:50→23:09)
[2021-07-24] MEDS: INSULIN LISPRO 100 UNITS/ML SUBCUT SCH ×5 (05:50→23:09)
[2021-07-24] MEDS: LEVOTHYROXINE SODIUM 50MCG TABLET PO SCH (05:50)
[2021-07-24 06:08] LABS: CHLORIDE 117 mEq/L (98-107)
[2021-07-24] MEDS: MIDAZOLAM HCL 100 MG in SODIUM CHLORIDE 0.9% 80 ML IV PRN (06:13)
[2021-07-24] MEDS: ALBUTEROL 6.7GM HFA INHALER ORI SCH ×2 (08:20)
[2021-07-24 08:54] LABS: PLATELET ESTIMATE NORMAL
[2021-07-24] MEDS: LOSARTAN POTASSIUM 100 MG TABLET PO SCH (08:57)
[2021-07-24] MEDS: AMLODIPINE 10MG TABLET PO SCH (08:58)
[2021-07-24] MEDS: LABETALOL HCL 200MG TABLET PO SCH ×2 (08:59→16:18)
[2021-07-24] MEDS: GUAIFENESIN 600MG ER TABLET PO SCH (09:00)
[2021-07-24] MEDS: DOCUSATE SODIUM SUGAR FREE 100MG/10ML UDC NG SCH ×2 (09:10→16:35)
[2021-07-24] MEDS: PANTOPRAZOLE SODIUM 40 MG/VIAL IV SCH (09:10)
[2021-07-24] MEDS: DEXAMETHASONE 10 MG/ML VIAL IV SCH (09:10)
[2021-07-24] MEDS: FENTANYL CITRATE/PF 2,500 MCG in SODIUM CHLORIDE 0.9% 200 ML IV PRN ×2 (10:30→20:33)
[2021-07-24] MEDS ORDERED: IPRATROPIUM/ALBUTEROL 0.5-3(2.5)MG/3ML NEB HHN PRN (11:00)
[2021-07-24] MEDS ORDERED: LACTULOSE 20G/30ML UDC PO SCH (11:00)
[2021-07-24 11:46] LABS: BG BASE EXCESS -2.8 mmol/L (-2.0-2.0); BG CARBOXYHEMOGLOBIN 0.5 % (0.5-1.5); BG DEOXYHEMOGLOBIN 2.2 % (0.0-5.0); BG FRACTION INSPIRED OXYGEN 100; BG HCO3 ACT 22.4 mmol/L (22.0-26.0); BG METHEMOGLOBIN 0.2 % (0.0-1.5); BG OXYGEN SATURATION 97.8 % (92.0-98.5); BG OXYHEMOGLOBIN 97.1 % (94.0-97.0); BG PCO2 40.3 mmHg (35.0-45.0); BG PH 7.363 (7.350-7.450); BG PO2 117.4 mmHg (75.0-100.0); BG TOTAL HEMOGLOBIN 12.3 g/dL (12.0-18.0); BG TOTAL RESPIRATORY RATE 26 b/min; BG VENT MODE VENT - AC
[2021-07-24] MEDS: ENOXAPARIN 80MG/0.8ML SYR SUBCUT SCH ×2 (12:01→23:10)
[2021-07-24] MEDS: IPRATROPIUM/ALBUTEROL 0.5-3(2.5)MG/3ML NEB HHN SCH ×3 (12:39→21:38)
[2021-07-25] VITALS (93 sets, daily range): BP systolic 83–140; BP diastolic 53–101
[2021-07-25] MEDS ORDERED: IOHEXOL-350 100 ML BOTTLE ONE (00:03)
[2021-07-25] MEDS: IPRATROPIUM/ALBUTEROL 0.5-3(2.5)MG/3ML NEB HHN SCH ×4 (00:54→20:05)
[2021-07-25] MEDS: MEROPENEM 1,000 MG in SODIUM CHLORIDE 0.9% 100 ML IV SCH ×3 (02:38→17:33)
[2021-07-25] MEDS: PHENYLEPHRINE 100 MG in DEXT 5% WATER 240 ML IV PRN (05:15)
[2021-07-25] MEDS: MIDAZOLAM HCL 100 MG in SODIUM CHLORIDE 0.9% 80 ML IV PRN (05:20)
[2021-07-25] MEDS: BLOOD SUGAR DIAGNOSTIC STRIP TEST SCH ×4 (05:25→23:29)
[2021-07-25] MEDS: INSULIN LISPRO 100 UNITS/ML SUBCUT SCH ×4 (05:25→23:29)
[2021-07-25 05:50] LABS: HEMATOCRIT. 36.2 % (36.0-48.0); HEMOGLOBIN. 11.9 g/dL (12.0-16.0); MEAN CORPUSCULAR HEMOGLOBIN 29.2 pg (28.0-32.0); MEAN CORPUSCULAR VOLUME 88.7 fL (81.0-99.0); PLATELET 202 x1000/uL (130-400); RED BLOOD CELL COUNT 4.08 mill/uL (4.2-5.4); RED CELL DISTRIBUTION WIDTH 14.4 % (11.6-14.6)
[2021-07-25] MEDS: LEVOTHYROXINE SODIUM 50MCG TABLET PO SCH (05:51)
[2021-07-25 06:07] LABS: CHLORIDE 118 mEq/L (98-107)
[2021-07-25] MEDS: AMLODIPINE 10MG TABLET PO SCH (08:15)
[2021-07-25] MEDS: LOSARTAN POTASSIUM 100 MG TABLET PO SCH (08:15)
[2021-07-25] MEDS: LABETALOL HCL 200MG TABLET PO SCH ×2 (08:16→16:31)
[2021-07-25 08:21] LABS: BG BASE EXCESS 0.1 mmol/L (-2.0-2.0); BG CARBOXYHEMOGLOBIN 0.9 % (0.5-1.5); BG DEOXYHEMOGLOBIN 11.8 % (0.0-5.0); BG HCO3 ACT 26.4 mmol/L (22.0-26.0); BG METHEMOGLOBIN 0.3 % (0.0-1.5); BG OXYGEN SATURATION 88.1 % (92.0-98.5); BG PCO2 49.8 mmHg (35.0-45.0); BG PH 7.342 (7.350-7.450); BG PO2 56.2 mmHg (75.0-100.0); BG SAMPLE SITE RIGHT BRACHIAL; BG TOTAL HEMOGLOBIN 12.2 g/dL (12.0-18.0); BG VENT MODE VENT - AC
[2021-07-25] MEDS: BISACODYL 10MG SUPP PR PRN (08:21)
[2021-07-25] MEDS: PANTOPRAZOLE SODIUM 40 MG/VIAL IV SCH (08:21)
[2021-07-25] MEDS: DOCUSATE SODIUM SUGAR FREE 100MG/10ML UDC NG SCH ×2 (08:21→17:35)
[2021-07-25] MEDS: DEXAMETHASONE 10 MG/ML VIAL IV SCH (08:21)
[2021-07-25] MEDS: FENTANYL CITRATE/PF 2,500 MCG in SODIUM CHLORIDE 0.9% 200 ML IV PRN ×2 (08:22→18:51)
[2021-07-25 10:55] LABS: PLATELET ESTIMATE NORMAL
[2021-07-25] MEDS: ENOXAPARIN 80MG/0.8ML SYR SUBCUT SCH ×2 (12:10→23:21)
[2021-07-26] VITALS (94 sets, daily range): BP systolic 79–136; BP diastolic 46–93
[2021-07-26] MEDS: IPRATROPIUM/ALBUTEROL 0.5-3(2.5)MG/3ML NEB HHN SCH ×6 (00:07→20:25)
[2021-07-26] MEDS: MEROPENEM 1,000 MG in SODIUM CHLORIDE 0.9% 100 ML IV SCH ×3 (01:37→17:40)
[2021-07-26] MEDS: MIDAZOLAM HCL 100 MG in SODIUM CHLORIDE 0.9% 80 ML IV PRN ×2 (01:38→17:07)
[2021-07-26] MEDS: FENTANYL CITRATE/PF 2,500 MCG in SODIUM CHLORIDE 0.9% 200 ML IV PRN ×3 (03:21→23:03)
[2021-07-26 05:30] LABS: HEMATOCRIT. 33.4 % (36.0-48.0); HEMOGLOBIN. 11.1 g/dL (12.0-16.0); MEAN CORPUSCULAR HEMOGLOBIN 29.5 pg (28.0-32.0); MEAN CORPUSCULAR VOLUME 88.3 fL (81.0-99.0); MEAN PLATELET VOLUME 9.9 fl (7.4-10.4); PLATELET 196 x1000/uL (130-400); RED BLOOD CELL COUNT 3.78 mill/uL (4.2-5.4); RED CELL DISTRIBUTION WIDTH 14.1 % (11.6-14.6)
[2021-07-26] MEDS: LEVOTHYROXINE SODIUM 50MCG TABLET PO SCH (05:38)
[2021-07-26] MEDS: INSULIN LISPRO 100 UNITS/ML SUBCUT SCH ×3 (06:00→17:41)
[2021-07-26] MEDS: BLOOD SUGAR DIAGNOSTIC STRIP TEST SCH ×3 (06:35→17:38)
[2021-07-26 08:04] LABS: CHLORIDE 117 mEq/L (98-107)
[2021-07-26] MEDS: LABETALOL HCL 200MG TABLET PO SCH ×2 (08:16→17:00)
[2021-07-26] MEDS: LOSARTAN POTASSIUM 100 MG TABLET PO SCH (08:16)
[2021-07-26] MEDS: AMLODIPINE 10MG TABLET PO SCH (08:16)
[2021-07-26] MEDS: DEXAMETHASONE 10 MG/ML VIAL IV SCH (08:22)
[2021-07-26] MEDS: DOCUSATE SODIUM SUGAR FREE 100MG/10ML UDC NG SCH ×2 (08:22→17:40)
[2021-07-26] MEDS: BISACODYL 10MG SUPP PR PRN (08:22)
[2021-07-26] MEDS: PANTOPRAZOLE SODIUM 40 MG/VIAL IV SCH (08:22)
[2021-07-26] MEDS: LACTULOSE 20G/30ML UDC PO PRN (08:24)
[2021-07-26 10:16] LABS: BG BASE EXCESS 0.2 mmol/L (-2.0-2.0); BG CARBOXYHEMOGLOBIN 0.4 % (0.5-1.5); BG DEOXYHEMOGLOBIN 6.2 % (0.0-5.0); BG FRACTION INSPIRED OXYGEN 85; BG HCO3 ACT 26.4 mmol/L (22.0-26.0); BG METHEMOGLOBIN 0.1 % (0.0-1.5); BG OXYGEN SATURATION 93.8 % (92.0-98.5); BG OXYHEMOGLOBIN 93.3 % (94.0-97.0); BG PCO2 49.4 mmHg (35.0-45.0); BG PH 7.345 (7.350-7.450); BG PO2 73.6 mmHg (75.0-100.0); BG SAMPLE SITE RIGHT RADIAL; BG TOTAL HEMOGLOBIN 11.5 g/dL (12.0-18.0); BG VENT MODE VENT - AC
[2021-07-26] MEDS: ENOXAPARIN 80MG/0.8ML SYR SUBCUT SCH (11:30)
[2021-07-26 13:44] LABS: PLATELET ESTIMATE NORMAL
[2021-07-27] VITALS (96 sets, daily range): BP systolic 75–169; BP diastolic 42–111
[2021-07-27] MEDS: BLOOD SUGAR DIAGNOSTIC STRIP TEST SCH ×4 (00:07→18:32)
[2021-07-27] MEDS: ENOXAPARIN 80MG/0.8ML SYR SUBCUT SCH ×2 (00:09→12:08)
[2021-07-27] MEDS: IPRATROPIUM/ALBUTEROL 0.5-3(2.5)MG/3ML NEB HHN SCH ×6 (00:28→20:25)
[2021-07-27] MEDS: MEROPENEM 1,000 MG in SODIUM CHLORIDE 0.9% 100 ML IV SCH ×3 (02:28→17:16)
[2021-07-27] MEDS: INSULIN LISPRO 100 UNITS/ML SUBCUT SCH ×4 (06:00→17:17)
[2021-07-27] MEDS: LEVOTHYROXINE SODIUM 50MCG TABLET PO SCH (06:18)
[2021-07-27 08:37] LABS: BG BASE EXCESS 1.9 mmol/L (-2.0-2.0); BG CARBOXYHEMOGLOBIN 0.6 % (0.5-1.5); BG HCO3 ACT 27.2 mmol/L (22.0-26.0); BG METHEMOGLOBIN 0.1 % (0.0-1.5); BG OXYGEN SATURATION 89.9 % (92.0-98.5); BG OXYHEMOGLOBIN 89.3 % (94.0-97.0); BG PCO2 45.6 mmHg (35.0-45.0); BG PH 7.394 (7.350-7.450); BG PO2 57.1 mmHg (75.0-100.0); BG SAMPLE SITE RIGHT BRACHIAL; BG TOTAL HEMOGLOBIN 10.9 g/dL (12.0-18.0); BG VENT MODE VENT - AC
[2021-07-27] MEDS: DEXAMETHASONE 10 MG/ML VIAL IV SCH (08:53)
[2021-07-27] MEDS: DOCUSATE SODIUM SUGAR FREE 100MG/10ML UDC NG SCH ×2 (08:53→17:16)
[2021-07-27] MEDS: PANTOPRAZOLE SODIUM 40 MG/VIAL IV SCH (08:53)
[2021-07-27] MEDS: FENTANYL CITRATE/PF 2,500 MCG in SODIUM CHLORIDE 0.9% 200 ML IV PRN ×2 (08:54→20:12)
[2021-07-27] MEDS: LOSARTAN POTASSIUM 100 MG TABLET PO SCH (09:00)
[2021-07-27] MEDS: LABETALOL HCL 200MG TABLET PO SCH ×2 (09:00→17:00)
[2021-07-27] MEDS: AMLODIPINE 10MG TABLET PO SCH (09:00)
[2021-07-27] MEDS: PHENYLEPHRINE 100 MG in DEXT 5% WATER 240 ML IV PRN (13:11)
[2021-07-27] MEDS: BISACODYL 10MG SUPP PR PRN (14:29)
[2021-07-27] MEDS: LACTULOSE 20G/30ML UDC PO PRN (14:29)
[2021-07-28] VITALS (88 sets, daily range): BP systolic 76–170; BP diastolic 40–115
[2021-07-28] MEDS: IPRATROPIUM/ALBUTEROL 0.5-3(2.5)MG/3ML NEB HHN SCH ×7 (00:24→20:09)
[2021-07-28] MEDS: INSULIN LISPRO 100 UNITS/ML SUBCUT SCH ×4 (05:05→17:40)
[2021-07-28] MEDS: BLOOD SUGAR DIAGNOSTIC STRIP TEST SCH ×4 (05:05→17:19)
[2021-07-28] MEDS: LEVOTHYROXINE SODIUM 50MCG TABLET PO SCH (05:39)
[2021-07-28 05:41] LABS: HEMATOCRIT. 33.9 % (36.0-48.0); HEMOGLOBIN. 11.4 g/dL (12.0-16.0); MEAN CORPUSCULAR HEMOGLOBIN 29.4 pg (28.0-32.0); MEAN CORPUSCULAR VOLUME 87.4 fL (81.0-99.0); MEAN PLATELET VOLUME 9.3 fl (7.4-10.4); PLATELET 236 x1000/uL (130-400); RED BLOOD CELL COUNT 3.88 mill/uL (4.2-5.4); RED CELL DISTRIBUTION WIDTH 14.2 % (11.6-14.6)
[2021-07-28 05:48] LABS: CHLORIDE 112 mEq/L (98-107)
[2021-07-28] MEDS: FENTANYL CITRATE/PF 2,500 MCG in SODIUM CHLORIDE 0.9% 200 ML IV PRN ×2 (07:12→17:10)
[2021-07-28] MEDS: MIDAZOLAM HCL 100 MG in SODIUM CHLORIDE 0.9% 80 ML IV PRN (07:14)
[2021-07-28 07:58] LABS: PLATELET ESTIMATE NORMAL
[2021-07-28] MEDS: LOSARTAN POTASSIUM 100 MG TABLET PO SCH (09:00)
[2021-07-28] MEDS: LABETALOL HCL 200MG TABLET PO SCH ×2 (09:00→17:00)
[2021-07-28] MEDS: AMLODIPINE 10MG TABLET PO SCH (09:00)
[2021-07-28] MEDS: DEXAMETHASONE 10 MG/ML VIAL IV SCH (09:16)
[2021-07-28] MEDS: DOCUSATE SODIUM SUGAR FREE 100MG/10ML UDC NG SCH ×2 (09:16→17:39)
[2021-07-28] MEDS: PANTOPRAZOLE SODIUM 40 MG/VIAL IV SCH (09:17)
[2021-07-28 10:03] LABS: BG BASE EXCESS 2.6 mmol/L (-2.0-2.0); BG CARBOXYHEMOGLOBIN 1.1 % (0.5-1.5); BG DEOXYHEMOGLOBIN 1.5 % (0.0-5.0); BG FRACTION INSPIRED OXYGEN 100; BG HCO3 ACT 28.3 mmol/L (22.0-26.0); BG METHEMOGLOBIN 0.2 % (0.0-1.5); BG OXYGEN SATURATION 98.5 % (92.0-98.5); BG OXYHEMOGLOBIN 97.2 % (94.0-97.0); BG PCO2 47.6 mmHg (35.0-45.0); BG PH 7.392 (7.350-7.450); BG PO2 109.9 mmHg (75.0-100.0); BG SAMPLE SITE LEFT RADIAL; BG VENT MODE PRVC
[2021-07-28] MEDS: ENOXAPARIN 80MG/0.8ML SYR SUBCUT SCH ×3 (12:14→23:59)
[2021-07-29] VITALS (90 sets, daily range): BP systolic 72–165; BP diastolic 33–87
[2021-07-29] MEDS: IPRATROPIUM/ALBUTEROL 0.5-3(2.5)MG/3ML NEB HHN SCH ×6 (00:09→20:05)
[2021-07-29] MEDS: FENTANYL CITRATE/PF 2,500 MCG in SODIUM CHLORIDE 0.9% 200 ML IV PRN ×2 (03:41→14:08)
[2021-07-29 06:00] LABS: CHLORIDE 109 mEq/L (98-107)
[2021-07-29] MEDS: INSULIN LISPRO 100 UNITS/ML SUBCUT SCH ×4 (06:00→18:00)
[2021-07-29 06:09] LABS: HEMATOCRIT. 32.7 % (36.0-48.0); HEMOGLOBIN. 10.6 g/dL (12.0-16.0); MEAN CORPUSCULAR HEMOGLOBIN 28.9 pg (28.0-32.0); MEAN CORPUSCULAR VOLUME 89.1 fL (81.0-99.0); MEAN PLATELET VOLUME 9.8 fl (7.4-10.4); PLATELET 259 x1000/uL (130-400); RED BLOOD CELL COUNT 3.67 mill/uL (4.2-5.4); RED CELL DISTRIBUTION WIDTH 14.6 % (11.6-14.6)
[2021-07-29] MEDS: BLOOD SUGAR DIAGNOSTIC STRIP TEST SCH ×4 (06:19→17:38)
[2021-07-29] MEDS: LEVOTHYROXINE SODIUM 50MCG TABLET PO SCH (07:50)
[2021-07-29] MEDS: LOSARTAN POTASSIUM 100 MG TABLET PO SCH (09:00)
[2021-07-29] MEDS: AMLODIPINE 10MG TABLET PO SCH (09:00)
[2021-07-29] MEDS: LABETALOL HCL 200MG TABLET PO SCH ×2 (09:00→17:00)
[2021-07-29] MEDS: DOCUSATE SODIUM SUGAR FREE 100MG/10ML UDC NG SCH ×2 (09:14→17:00)
[2021-07-29] MEDS: DEXAMETHASONE 10 MG/ML VIAL IV SCH (09:14)
[2021-07-29] MEDS: PANTOPRAZOLE SODIUM 40 MG/VIAL IV SCH (09:14)
[2021-07-29] MEDS ORDERED: SODIUM POLYSTYRENE SULFONATE 15 G/60 ML BOT PO NR (11:00)
[2021-07-29] MEDS: ENOXAPARIN 80MG/0.8ML SYR SUBCUT SCH (11:40)
[2021-07-29 12:02] LABS: NUCLEATED RED BLOOD CELLS 2 /100 WBC; PLATELET ESTIMATE NORMAL
[2021-07-29] MEDS: MIDAZOLAM HCL 100 MG in SODIUM CHLORIDE 0.9% 80 ML IV PRN (18:02)
[2021-07-30] VITALS (85 sets, daily range): BP systolic 76–168; BP diastolic 44–96
[2021-07-30] MEDS: BLOOD SUGAR DIAGNOSTIC STRIP TEST SCH ×4 (00:09→16:56)
[2021-07-30] MEDS: ENOXAPARIN 80MG/0.8ML SYR SUBCUT SCH ×2 (00:10→11:47)
[2021-07-30] MEDS: IPRATROPIUM/ALBUTEROL 0.5-3(2.5)MG/3ML NEB HHN SCH ×6 (00:20→20:20)
[2021-07-30] MEDS: FENTANYL CITRATE/PF 2,500 MCG in SODIUM CHLORIDE 0.9% 200 ML IV PRN ×3 (01:03→23:27)
[2021-07-30] MEDS: INSULIN LISPRO 100 UNITS/ML SUBCUT SCH ×4 (06:00→17:24)
[2021-07-30 06:44] LABS: CHLORIDE 110 mEq/L (98-107)
[2021-07-30 06:49] LABS: HEMATOCRIT. 28.6 % (36.0-48.0); HEMOGLOBIN. 9.5 g/dL (12.0-16.0); MEAN CORPUSCULAR HEMOGLOBIN 29.5 pg (28.0-32.0); PLATELET 229 x1000/uL (130-400); RED BLOOD CELL COUNT 3.22 mill/uL (4.2-5.4); RED CELL DISTRIBUTION WIDTH 14.3 % (11.6-14.6)
[2021-07-30] MEDS: LEVOTHYROXINE SODIUM 50MCG TABLET PO SCH (07:21)
[2021-07-30] MEDS: DEXAMETHASONE 10 MG/ML VIAL IV SCH (08:23)
[2021-07-30] MEDS: PANTOPRAZOLE SODIUM 40 MG/VIAL IV SCH (08:23)
[2021-07-30] MEDS: DOCUSATE SODIUM SUGAR FREE 100MG/10ML UDC NG SCH ×2 (08:24→17:24)
[2021-07-30 08:58] LABS: BG BASE EXCESS 1.8 mmol/L (-2.0-2.0); BG CARBOXYHEMOGLOBIN 0.3 % (0.5-1.5); BG DEOXYHEMOGLOBIN 4.6 % (0.0-5.0); BG FRACTION INSPIRED OXYGEN 100; BG HCO3 ACT 27.5 mmol/L (22.0-26.0); BG METHEMOGLOBIN 0.3 % (0.0-1.5); BG OXYGEN SATURATION 95.4 % (92.0-98.5); BG OXYHEMOGLOBIN 94.8 % (94.0-97.0); BG PCO2 48.7 mmHg (35.0-45.0); BG PO2 81.7 mmHg (75.0-100.0); BG SAMPLE SITE RIGHT RADIAL; BG TOTAL HEMOGLOBIN 9.6 g/dL (12.0-18.0); BG TOTAL RESPIRATORY RATE 26 b/min; BG VENT MODE VENT- PRVC
[2021-07-30] MEDS: AMLODIPINE 10MG TABLET PO SCH (08:58)
[2021-07-30] MEDS: LABETALOL HCL 200MG TABLET PO SCH ×2 (08:59→16:55)
[2021-07-30 10:38] LABS: PLATELET ESTIMATE NORMAL
[2021-07-30] MEDS: PHENYLEPHRINE 100 MG in DEXT 5% WATER 240 ML IV PRN (11:21)
[2021-07-30] MEDS: MIDAZOLAM HCL 100 MG in SODIUM CHLORIDE 0.9% 80 ML IV PRN (23:26)
[2021-07-31] VITALS (83 sets, daily range): BP systolic 92–143; BP diastolic 46–87
[2021-07-31] MEDS: ENOXAPARIN 80MG/0.8ML SYR SUBCUT SCH ×2 (00:05→11:48)
[2021-07-31] MEDS: IPRATROPIUM/ALBUTEROL 0.5-3(2.5)MG/3ML NEB HHN SCH ×6 (00:10→23:46)
[2021-07-31 05:27] LABS: HEMATOCRIT. 27.9 % (36.0-48.0); HEMOGLOBIN. 9.2 g/dL (12.0-16.0); MEAN CORPUSCULAR HEMOGLOBIN 29.3 pg (28.0-32.0); MEAN PLATELET VOLUME 9.4 fl (7.4-10.4); PLATELET 234 x1000/uL (130-400); RED BLOOD CELL COUNT 3.14 mill/uL (4.2-5.4); RED CELL DISTRIBUTION WIDTH 14.6 % (11.6-14.6)
[2021-07-31 05:44] LABS: CHLORIDE 110 mEq/L (98-107)
[2021-07-31] MEDS: BLOOD SUGAR DIAGNOSTIC STRIP TEST SCH ×4 (06:00→17:07)
[2021-07-31] MEDS: INSULIN LISPRO 100 UNITS/ML SUBCUT SCH ×4 (06:00→17:07)
[2021-07-31 07:45] LABS: PLATELET ESTIMATE NORMAL
[2021-07-31] MEDS: PANTOPRAZOLE SODIUM 40 MG/VIAL IV SCH (08:21)
[2021-07-31] MEDS: AMLODIPINE 10MG TABLET PO SCH (08:21)
[2021-07-31] MEDS: DEXAMETHASONE 10 MG/ML VIAL IV SCH (08:21)
[2021-07-31] MEDS: DOCUSATE SODIUM SUGAR FREE 100MG/10ML UDC NG SCH ×2 (08:21→17:07)
[2021-07-31] MEDS: LABETALOL HCL 200MG TABLET PO SCH (08:21)
[2021-07-31] MEDS: LEVOTHYROXINE SODIUM 50MCG TABLET PO SCH (08:21)
[2021-07-31 08:54] LABS: BG BASE EXCESS 4.9 mmol/L (-2.0-2.0); BG CARBOXYHEMOGLOBIN 0.2 % (0.5-1.5); BG DEOXYHEMOGLOBIN 2.9 % (0.0-5.0); BG FRACTION INSPIRED OXYGEN 100; BG HCO3 ACT 30.3 mmol/L (22.0-26.0); BG METHEMOGLOBIN 0.2 % (0.0-1.5); BG OXYGEN SATURATION 97.1 % (92.0-98.5); BG OXYHEMOGLOBIN 96.7 % (94.0-97.0); BG PCO2 49.2 mmHg (35.0-45.0); BG PH 7.408 (7.350-7.450); BG PO2 96.1 mmHg (75.0-100.0); BG SAMPLE SITE LEFT BRACHIAL; BG TOTAL HEMOGLOBIN 10.4 g/dL (12.0-18.0); BG VENT MODE PRVC
[2021-07-31] MEDS: FENTANYL CITRATE/PF 2,500 MCG in SODIUM CHLORIDE 0.9% 200 ML IV PRN ×2 (10:44→21:23)
[2021-07-31] MEDS: MIDAZOLAM HCL 100 MG in SODIUM CHLORIDE 0.9% 80 ML IV PRN (13:04)
[2021-07-31] MEDS ORDERED: DOCUSATE SODIUM SUGAR FREE 100MG/10ML UDC NG SCH (17:00)
[2021-08-01] VITALS (95 sets, daily range): BP systolic 86–138; BP diastolic 50–93
[2021-08-01] MEDS: BLOOD SUGAR DIAGNOSTIC STRIP TEST SCH ×4 (00:31→17:44)
[2021-08-01] MEDS: ENOXAPARIN 80MG/0.8ML SYR SUBCUT SCH ×2 (00:35→12:19)
[2021-08-01] MEDS: IPRATROPIUM/ALBUTEROL 0.5-3(2.5)MG/3ML NEB HHN SCH ×5 (03:12→20:15)
[2021-08-01] MEDS: MIDAZOLAM HCL 100 MG in SODIUM CHLORIDE 0.9% 80 ML IV PRN ×2 (03:33→16:21)
[2021-08-01] MEDS: INSULIN LISPRO 100 UNITS/ML SUBCUT SCH ×4 (06:00→17:51)
[2021-08-01 06:06] LABS: CHLORIDE 112 mEq/L (98-107)
[2021-08-01 06:13] LABS: HEMATOCRIT. 25.4 % (36.0-48.0); HEMOGLOBIN. 8.3 g/dL (12.0-16.0); MEAN CORPUSCULAR HEMOGLOBIN 29.4 pg (28.0-32.0); MEAN CORPUSCULAR VOLUME 89.7 fL (81.0-99.0); MEAN PLATELET VOLUME 9.5 fl (7.4-10.4); PLATELET 219 x1000/uL (130-400); RED BLOOD CELL COUNT 2.83 mill/uL (4.2-5.4); RED CELL DISTRIBUTION WIDTH 14.3 % (11.6-14.6)
[2021-08-01] MEDS: DOCUSATE SODIUM SUGAR FREE 100MG/10ML UDC NG SCH ×2 (08:25→17:44)
[2021-08-01] MEDS: PANTOPRAZOLE SODIUM 40 MG/VIAL IV SCH (08:25)
[2021-08-01] MEDS: DEXAMETHASONE 10 MG/ML VIAL IV SCH (08:25)
[2021-08-01] MEDS: FENTANYL CITRATE/PF 2,500 MCG in SODIUM CHLORIDE 0.9% 200 ML IV PRN ×2 (08:26→18:57)
[2021-08-01] MEDS: LEVOTHYROXINE SODIUM 50MCG TABLET PO SCH (08:26)
[2021-08-01 09:28] LABS: BG BASE EXCESS 4.6 mmol/L (-2.0-2.0); BG CARBOXYHEMOGLOBIN 0.3 % (0.5-1.5); BG DEOXYHEMOGLOBIN 1.4 % (0.0-5.0); BG FRACTION INSPIRED OXYGEN 100; BG HCO3 ACT 29.2 mmol/L (22.0-26.0); BG METHEMOGLOBIN 0.2 % (0.0-1.5); BG OXYGEN SATURATION 98.6 % (92.0-98.5); BG OXYHEMOGLOBIN 98.1 % (94.0-97.0); BG PCO2 43.7 mmHg (35.0-45.0); BG PH 7.443 (7.350-7.450); BG PO2 186.8 mmHg (75.0-100.0); BG SAMPLE SITE RIGHT BRACHIAL; BG TOTAL HEMOGLOBIN 9.7 g/dL (12.0-18.0); BG VENT MODE PRVC
[2021-08-01 09:50] LABS: NUCLEATED RED BLOOD CELLS 1 /100 WBC; PLATELET ESTIMATE NORMAL
[2021-08-02] VITALS (90 sets, daily range): BP systolic 80–207; BP diastolic 19–111
[2021-08-02] MEDS: ENOXAPARIN 80MG/0.8ML SYR SUBCUT SCH ×2 (00:28→12:57)
[2021-08-02] MEDS: BLOOD SUGAR DIAGNOSTIC STRIP TEST SCH ×4 (00:36→18:47)
[2021-08-02] MEDS: IPRATROPIUM/ALBUTEROL 0.5-3(2.5)MG/3ML NEB HHN SCH ×6 (04:16→20:30)
[2021-08-02] MEDS ORDERED: PROPOFOL 10MG/ML 100ML 100 ML IV PRN (05:45)
[2021-08-02] MEDS: INSULIN LISPRO 100 UNITS/ML SUBCUT SCH ×4 (06:00→18:00)
[2021-08-02] MEDS: MIDAZOLAM HCL 100 MG in SODIUM CHLORIDE 0.9% 80 ML IV PRN ×2 (06:08→16:30)
[2021-08-02] MEDS: FENTANYL CITRATE/PF 2,500 MCG in SODIUM CHLORIDE 0.9% 200 ML IV PRN ×3 (06:09→23:31)
[2021-08-02 06:22] LABS: HEMATOCRIT. 27.2 % (36.0-48.0); HEMOGLOBIN. 8.9 g/dL (12.0-16.0); MEAN CORPUSCULAR HEMOGLOBIN 29.4 pg (28.0-32.0); MEAN CORPUSCULAR VOLUME 90.1 fL (81.0-99.0); MEAN PLATELET VOLUME 9.4 fl (7.4-10.4); PLATELET 256 x1000/uL (130-400); RED BLOOD CELL COUNT 3.02 mill/uL (4.2-5.4); RED CELL DISTRIBUTION WIDTH 14.8 % (11.6-14.6)
[2021-08-02 06:36] LABS: CHLORIDE 109 mEq/L (98-107)
[2021-08-02] MEDS: LEVOTHYROXINE SODIUM 50MCG TABLET PO SCH (07:50)
[2021-08-02 09:10] LABS: BG BASE EXCESS 6.8 mmol/L (-2.0-2.0); BG CARBOXYHEMOGLOBIN 0.7 % (0.5-1.5); BG DEOXYHEMOGLOBIN 3.5 % (0.0-5.0); BG FRACTION INSPIRED OXYGEN 100; BG HCO3 ACT 32.2 mmol/L (22.0-26.0); BG METHEMOGLOBIN 0.4 % (0.0-1.5); BG OXYGEN SATURATION 96.5 % (92.0-98.5); BG OXYHEMOGLOBIN 95.4 % (94.0-97.0); BG PCO2 51.2 mmHg (35.0-45.0); BG PH 7.416 (7.350-7.450); BG PO2 89.4 mmHg (75.0-100.0); BG SAMPLE SITE RIGHT RADIAL; BG TOTAL HEMOGLOBIN 8.6 g/dL (12.0-18.0); BG TOTAL RESPIRATORY RATE 26 b/min; BG VENT MODE VENT - PRVC
[2021-08-02] MEDS: DOCUSATE SODIUM SUGAR FREE 100MG/10ML UDC NG SCH ×2 (09:59→16:28)
[2021-08-02] MEDS: PANTOPRAZOLE SODIUM 40 MG/VIAL IV SCH (09:59)
[2021-08-02] MEDS: DEXAMETHASONE 10 MG/ML VIAL IV SCH (09:59)
[2021-08-02 12:12] LABS: PLATELET ESTIMATE NORMAL
[2021-08-02] MEDS: PHENYLEPHRINE 100 MG in DEXT 5% WATER 240 ML IV PRN (13:05)
[2021-08-03] VITALS (92 sets, daily range): BP systolic 64–164; BP diastolic 37–92
[2021-08-03] MEDS: BLOOD SUGAR DIAGNOSTIC STRIP TEST SCH ×5 (00:11→23:15)
[2021-08-03] MEDS: ENOXAPARIN 80MG/0.8ML SYR SUBCUT SCH ×3 (00:20→23:10)
[2021-08-03] MEDS: IPRATROPIUM/ALBUTEROL 0.5-3(2.5)MG/3ML NEB HHN SCH ×6 (00:23→20:43)
[2021-08-03] MEDS: MIDAZOLAM HCL 100 MG in SODIUM CHLORIDE 0.9% 80 ML IV PRN ×2 (03:40→14:07)
[2021-08-03] MEDS: INSULIN LISPRO 100 UNITS/ML SUBCUT SCH ×5 (06:00→23:15)
[2021-08-03 06:04] LABS: CHLORIDE 114 mEq/L (98-107)
[2021-08-03 06:12] LABS: HEMATOCRIT. 23.5 % (36.0-48.0); HEMOGLOBIN. 7.7 g/dL (12.0-16.0); MEAN CORPUSCULAR HEMOGLOBIN 29.2 pg (28.0-32.0); MEAN CORPUSCULAR VOLUME 89.4 fL (81.0-99.0); MEAN PLATELET VOLUME 9.1 fl (7.4-10.4); PLATELET 225 x1000/uL (130-400); RED BLOOD CELL COUNT 2.62 mill/uL (4.2-5.4); RED CELL DISTRIBUTION WIDTH 14.4 % (11.6-14.6)
[2021-08-03] MEDS: PANTOPRAZOLE SODIUM 40 MG/VIAL IV SCH (08:05)
[2021-08-03] MEDS: DOCUSATE SODIUM SUGAR FREE 100MG/10ML UDC NG SCH ×2 (08:05→17:15)
[2021-08-03] MEDS: DEXAMETHASONE 10 MG/ML VIAL IV SCH (08:05)
[2021-08-03] MEDS: LEVOTHYROXINE SODIUM 50MCG TABLET PO SCH (08:05)
[2021-08-03 09:19] LABS: BG CARBOXYHEMOGLOBIN 0.5 % (0.5-1.5); BG DEOXYHEMOGLOBIN 2.9 % (0.0-5.0); BG FRACTION INSPIRED OXYGEN 90; BG HCO3 ACT 31.4 mmol/L (22.0-26.0); BG METHEMOGLOBIN 0.5 % (0.0-1.5); BG OXYGEN SATURATION 97.1 % (92.0-98.5); BG OXYHEMOGLOBIN 96.1 % (94.0-97.0); BG PCO2 50.9 mmHg (35.0-45.0); BG PH 7.408 (7.350-7.450); BG PO2 99.7 mmHg (75.0-100.0); BG SAMPLE SITE RIGHT RADIAL; BG VENT MODE VENT - PRVC
[2021-08-03] MEDS: FENTANYL CITRATE/PF 2,500 MCG in SODIUM CHLORIDE 0.9% 200 ML IV PRN ×2 (09:35→17:33)
[2021-08-03 10:13] LABS: PLATELET ESTIMATE NORMAL
[2021-08-03] MEDS: PROPOFOL 10MG/ML 100ML 100 ML IV PRN ×3 (11:00→20:01)
[2021-08-03 11:31] LABS: BG BASE EXCESS 2.9 mmol/L (-2.0-2.0); BG CARBOXYHEMOGLOBIN 0.8 % (0.5-1.5); BG DEOXYHEMOGLOBIN 6.6 % (0.0-5.0); BG FRACTION INSPIRED OXYGEN 100; BG METHEMOGLOBIN 0.3 % (0.0-1.5); BG OXYGEN SATURATION 93.3 % (92.0-98.5); BG OXYHEMOGLOBIN 92.3 % (94.0-97.0); BG PCO2 53.5 mmHg (35.0-45.0); BG PH 7.352 (7.350-7.450); BG PO2 73.9 mmHg (75.0-100.0); BG SAMPLE SITE RIGHT RADIAL; BG TOTAL HEMOGLOBIN 8.3 g/dL (12.0-18.0); BG VENT MODE VENT - PRVC
[2021-08-04] VITALS (95 sets, daily range): BP systolic 88–171; BP diastolic 25–93
[2021-08-04] MEDS: IPRATROPIUM/ALBUTEROL 0.5-3(2.5)MG/3ML NEB HHN SCH ×7 (00:18→23:25)
[2021-08-04] MEDS: PROPOFOL 10MG/ML 100ML 100 ML IV PRN ×3 (02:02→15:06)
[2021-08-04] MEDS: MIDAZOLAM HCL 100 MG in SODIUM CHLORIDE 0.9% 80 ML IV PRN ×2 (02:10→15:07)
[2021-08-04] MEDS: FENTANYL CITRATE/PF 2,500 MCG in SODIUM CHLORIDE 0.9% 200 ML IV PRN ×3 (02:10→21:02)
[2021-08-04] MEDS: INSULIN LISPRO 100 UNITS/ML SUBCUT SCH ×3 (05:15→18:00)
[2021-08-04] MEDS: BLOOD SUGAR DIAGNOSTIC STRIP TEST SCH ×3 (05:15→18:14)
[2021-08-04 07:06] LABS: HEMATOCRIT. 22.2 % (36.0-48.0); HEMOGLOBIN. 7.2 g/dL (12.0-16.0); MEAN CORPUSCULAR HEMOGLOBIN 29.1 pg (28.0-32.0); MEAN CORPUSCULAR VOLUME 89.5 fL (81.0-99.0); MEAN PLATELET VOLUME 8.9 fl (7.4-10.4); PLATELET 228 x1000/uL (130-400); RED BLOOD CELL COUNT 2.48 mill/uL (4.2-5.4); RED CELL DISTRIBUTION WIDTH 14.5 % (11.6-14.6)
[2021-08-04] MEDS: LEVOTHYROXINE SODIUM 50MCG TABLET PO SCH (08:01)
[2021-08-04] MEDS: PANTOPRAZOLE SODIUM 40 MG/VIAL IV SCH (08:01)
[2021-08-04] MEDS: DOCUSATE SODIUM SUGAR FREE 100MG/10ML UDC NG SCH ×2 (08:02→18:14)
[2021-08-04] MEDS: DEXAMETHASONE 10 MG/ML VIAL IV SCH (08:02)
[2021-08-04 08:12] LABS: CHLORIDE 110 mEq/L (98-107)
[2021-08-04 08:30] LABS: BG BASE EXCESS 7.7 mmol/L (-2.0-2.0); BG CARBOXYHEMOGLOBIN 0.1 % (0.5-1.5); BG DEOXYHEMOGLOBIN 8.2 % (0.0-5.0); BG FRACTION INSPIRED OXYGEN 100; BG HCO3 ACT 33.6 mmol/L (22.0-26.0); BG METHEMOGLOBIN 1.1 % (0.0-1.5); BG OXYGEN SATURATION 91.7 % (92.0-98.5); BG OXYHEMOGLOBIN 90.6 % (94.0-97.0); BG PCO2 56.1 mmHg (35.0-45.0); BG PH 7.395 (7.350-7.450); BG PO2 65.8 mmHg (75.0-100.0); BG VENT MODE PRVC
[2021-08-04] MEDS ORDERED: PROPOFOL 10MG/ML 100ML 100 ML IV PRN (13:30)
[2021-08-04 14:00] LABS: PLATELET ESTIMATE NORMAL
[2021-08-04] MEDS: PHENYLEPHRINE 100 MG in DEXT 5% WATER 240 ML IV PRN (15:07)
[2021-08-04 15:57] LABS: TOTAL IRON BINDING CAPACITY 181 ug/dL (250-450)
[2021-08-04] MEDS: METOCLOPRAMIDE HCL 10MG/2ML VIAL IV SCH (18:14)
[2021-08-04] MEDS: LACTULOSE 20G/30ML UDC PO PRN (22:20)
[2021-08-04] MEDS: DIPHENHYDRAMINE 50MG/ML VIAL IV PRN (22:20)
[2021-08-05] VITALS (96 sets, daily range): BP systolic 72–183; BP diastolic 39–108
[2021-08-05] MEDS: BLOOD SUGAR DIAGNOSTIC STRIP TEST SCH ×4 (00:27→17:14)
[2021-08-05] MEDS: METOCLOPRAMIDE HCL 10MG/2ML VIAL IV SCH ×4 (00:28→17:21)
[2021-08-05] MEDS: IPRATROPIUM/ALBUTEROL 0.5-3(2.5)MG/3ML NEB HHN SCH ×5 (02:02→19:56)
[2021-08-05] MEDS: INSULIN LISPRO 100 UNITS/ML SUBCUT SCH ×4 (06:00→17:14)
[2021-08-05] MEDS: MIDAZOLAM HCL 100 MG in SODIUM CHLORIDE 0.9% 80 ML IV PRN ×2 (06:06→17:56)
[2021-08-05] MEDS: FENTANYL CITRATE/PF 2,500 MCG in SODIUM CHLORIDE 0.9% 200 ML IV PRN ×3 (06:08→22:43)
[2021-08-05 07:18] LABS: HEMATOCRIT. 21.6 % (36.0-48.0); HEMOGLOBIN. 7.4 g/dL (12.0-16.0); MEAN CORPUSCULAR HEMOGLOBIN 30.2 pg (28.0-32.0); MEAN CORPUSCULAR VOLUME 87.5 fL (81.0-99.0); MEAN PLATELET VOLUME 8.3 fl (7.4-10.4); PLATELET 262 x1000/uL (130-400); RED BLOOD CELL COUNT 2.46 mill/uL (4.2-5.4); RED CELL DISTRIBUTION WIDTH 14.7 % (11.6-14.6)
[2021-08-05 07:24] LABS: CHLORIDE 109 mEq/L (98-107)
[2021-08-05] MEDS: LEVOTHYROXINE SODIUM 50MCG TABLET PO SCH (08:28)
[2021-08-05] MEDS: DEXAMETHASONE 10 MG/ML VIAL IV SCH (08:29)
[2021-08-05] MEDS: PANTOPRAZOLE SODIUM 40 MG/VIAL IV SCH (08:29)
[2021-08-05] MEDS: DOCUSATE SODIUM SUGAR FREE 100MG/10ML UDC NG SCH ×2 (08:29→17:21)
[2021-08-05 08:59] LABS: BG BASE EXCESS 3.3 mmol/L (-2.0-2.0); BG CARBOXYHEMOGLOBIN 0.8 % (0.5-1.5); BG DEOXYHEMOGLOBIN 7.6 % (0.0-5.0); BG FRACTION INSPIRED OXYGEN 100; BG OXYGEN SATURATION 92.3 % (92.0-98.5); BG OXYHEMOGLOBIN 91.6 % (94.0-97.0); BG PCO2 43.4 mmHg (35.0-45.0); BG PH 7.427 (7.350-7.450); BG PO2 67.5 mmHg (75.0-100.0); BG SAMPLE SITE RIGHT RADIAL; BG VENT MODE PRVC
[2021-08-05] MEDS ORDERED: POTASSIUM CHLORIDE 20MEQ/PACKET PO SCH (10:00)
[2021-08-05 10:25] LABS: NUCLEATED RED BLOOD CELLS 1 /100 WBC
[2021-08-05 10:26] LABS: PLATELET ESTIMATE NORMAL
[2021-08-05] MEDS: PHENYLEPHRINE 100 MG in DEXT 5% WATER 240 ML IV PRN (13:51)
[2021-08-05] MEDS: MEROPENEM 1,000 MG in SODIUM CHLORIDE 0.9% 100 ML IV SCH (17:22)
[2021-08-05] MEDS: PROPOFOL 10MG/ML 100ML 100 ML IV PRN (19:09)
[2021-08-05 22:09] LABS: BG BASE EXCESS 1.3 mmol/L (-2.0-2.0); BG CARBOXYHEMOGLOBIN 0.7 % (0.5-1.5); BG DEOXYHEMOGLOBIN 36.4 % (0.0-5.0); BG FRACTION INSPIRED OXYGEN 100; BG HCO3 ACT 27.8 mmol/L (22.0-26.0); BG METHEMOGLOBIN 0.5 % (0.0-1.5); BG OXYGEN SATURATION 63.2 % (92.0-98.5); BG OXYHEMOGLOBIN 62.4 % (94.0-97.0); BG PCO2 54.1 mmHg (35.0-45.0); BG PH 7.328 (7.350-7.450); BG PO2 35.4 mmHg (75.0-100.0); BG SAMPLE SITE RIGHT RADIAL; BG TOTAL HEMOGLOBIN 8.7 g/dL (12.0-18.0); BG VENT MODE VENT- PRVC
[2021-08-06] VITALS (98 sets, daily range): BP systolic 83–164; BP diastolic 33–120
[2021-08-06] MEDS: IPRATROPIUM/ALBUTEROL 0.5-3(2.5)MG/3ML NEB HHN SCH ×6 (00:13→20:44)
[2021-08-06] MEDS: METOCLOPRAMIDE HCL 10MG/2ML VIAL IV SCH ×4 (00:39→17:17)
[2021-08-06] MEDS: BLOOD SUGAR DIAGNOSTIC STRIP TEST SCH ×4 (00:39→17:17)
[2021-08-06] MEDS: MEROPENEM 1,000 MG in SODIUM CHLORIDE 0.9% 100 ML IV SCH ×3 (02:12→17:17)
[2021-08-06] MEDS: PROPOFOL 10MG/ML 100ML 100 ML IV PRN ×2 (03:08→09:07)
[2021-08-06] MEDS: MIDAZOLAM HCL 100 MG in SODIUM CHLORIDE 0.9% 80 ML IV PRN ×3 (04:25→20:27)
[2021-08-06 05:43] LABS: BASOPHILS % 0.8 % (0.0-2.0); EOSINOPHILS % 2.4 % (0.0-5.0); HEMATOCRIT. 22.2 % (36.0-48.0); HEMOGLOBIN. 7.4 g/dL (12.0-16.0); MEAN CORPUSCULAR HEMOGLOBIN 29.8 pg (28.0-32.0); MEAN CORPUSCULAR VOLUME 89.7 fL (81.0-99.0); MEAN PLATELET VOLUME 8.2 fl (7.4-10.4); MONOCYTES % 1.4 % (2.0-8.0); NEUTROPHILS % 87.4 % (40.0-76.0); PLATELET 254 x1000/uL (130-400); RED BLOOD CELL COUNT 2.47 mill/uL (4.2-5.4); RED CELL DISTRIBUTION WIDTH 15.1 % (11.6-14.6)
[2021-08-06] MEDS: INSULIN LISPRO 100 UNITS/ML SUBCUT SCH ×4 (06:00→17:18)
[2021-08-06] MEDS: FENTANYL CITRATE/PF 2,500 MCG in SODIUM CHLORIDE 0.9% 200 ML IV PRN ×3 (07:40→20:26)
[2021-08-06 08:57] LABS: BG BASE EXCESS 5.2 mmol/L (-2.0-2.0); BG CARBOXYHEMOGLOBIN 1.1 % (0.5-1.5); BG DEOXYHEMOGLOBIN 13.5 % (0.0-5.0); BG FRACTION INSPIRED OXYGEN 100; BG HCO3 ACT 30.3 mmol/L (22.0-26.0); BG METHEMOGLOBIN 0.3 % (0.0-1.5); BG OXYGEN SATURATION 86.3 % (92.0-98.5); BG OXYHEMOGLOBIN 85.1 % (94.0-97.0); BG PCO2 47.8 mmHg (35.0-45.0); BG PO2 53.4 mmHg (75.0-100.0); BG SAMPLE SITE LEFT RADIAL; BG VENT MODE PRVC
[2021-08-06] MEDS: DEXAMETHASONE 10 MG/ML VIAL IV SCH (09:07)
[2021-08-06] MEDS: DOCUSATE SODIUM SUGAR FREE 100MG/10ML UDC NG SCH ×2 (09:07→17:17)
[2021-08-06] MEDS: PANTOPRAZOLE SODIUM 40 MG/VIAL IV SCH (09:07)
[2021-08-06 09:08] LABS: CHLORIDE 110 mEq/L (98-107)
[2021-08-06] MEDS: LEVOTHYROXINE SODIUM 50MCG TABLET PO SCH (09:08)
[2021-08-06] MEDS ORDERED: FENTANYL CITRATE/PF 2,500 MCG in SODIUM CHLORIDE 0.9% 200 ML IV PRN (12:15)
[2021-08-06] MEDS ORDERED: MIDAZOLAM HCL 100 MG in SODIUM CHLORIDE 0.9% 80 ML IV PRN (12:15)
[2021-08-06] MEDS: PHENYLEPHRINE 100 MG in DEXT 5% WATER 240 ML IV PRN (12:44)
[2021-08-06] MEDS ORDERED: PROPOFOL 10MG/ML 100ML 100 ML IV PRN (13:00)
[2021-08-06] MEDS: LACTULOSE 20G/30ML UDC PO PRN (21:08)
[2021-08-07] VITALS (103 sets, daily range): BP systolic 55–178; BP diastolic 30–118
[2021-08-07] MEDS: ACETAMINOPHEN 325MG TABLET PO PRN (00:25)
[2021-08-07] MEDS: BLOOD SUGAR DIAGNOSTIC STRIP TEST SCH ×4 (00:26→17:09)
[2021-08-07] MEDS: METOCLOPRAMIDE HCL 10MG/2ML VIAL IV SCH ×4 (00:26→17:09)
[2021-08-07] MEDS: IPRATROPIUM/ALBUTEROL 0.5-3(2.5)MG/3ML NEB HHN SCH ×6 (01:08→20:06)
[2021-08-07 05:43] LABS: HEMATOCRIT. 23.2 % (36.0-48.0); HEMOGLOBIN. 7.6 g/dL (12.0-16.0); MEAN CORPUSCULAR HEMOGLOBIN 29.4 pg (28.0-32.0); MEAN CORPUSCULAR VOLUME 90.1 fL (81.0-99.0); MEAN PLATELET VOLUME 8.3 fl (7.4-10.4); PLATELET 266 x1000/uL (130-400); RED BLOOD CELL COUNT 2.58 mill/uL (4.2-5.4); RED CELL DISTRIBUTION WIDTH 15.5 % (11.6-14.6)
[2021-08-07] MEDS: INSULIN LISPRO 100 UNITS/ML SUBCUT SCH ×4 (06:00→17:09)
[2021-08-07] MEDS: MEROPENEM 1,000 MG in SODIUM CHLORIDE 0.9% 100 ML IV SCH ×3 (06:16→17:09)
[2021-08-07] MEDS: PHENYLEPHRINE 100 MG in DEXT 5% WATER 240 ML IV PRN (06:19)
[2021-08-07] MEDS: FENTANYL CITRATE/PF 2,500 MCG in SODIUM CHLORIDE 0.9% 200 ML IV PRN ×3 (06:20→17:54)
[2021-08-07] MEDS: MIDAZOLAM HCL 100 MG in SODIUM CHLORIDE 0.9% 80 ML IV PRN ×3 (06:21→17:17)
[2021-08-07] MEDS: LEVOTHYROXINE SODIUM 50MCG TABLET PO SCH (07:50)
[2021-08-07] MEDS: PANTOPRAZOLE SODIUM 40 MG/VIAL IV SCH (08:53)
[2021-08-07] MEDS: DOCUSATE SODIUM SUGAR FREE 100MG/10ML UDC NG SCH ×2 (08:53→17:09)
[2021-08-07] MEDS: DEXAMETHASONE 10 MG/ML VIAL IV SCH (08:54)
[2021-08-07 09:02] LABS: BG BASE EXCESS -0.1 mmol/L (-2.0-2.0); BG CARBOXYHEMOGLOBIN 0.4 % (0.5-1.5); BG DEOXYHEMOGLOBIN 2.6 % (0.0-5.0); BG FRACTION INSPIRED OXYGEN 100; BG HCO3 ACT 24.8 mmol/L (22.0-26.0); BG METHEMOGLOBIN 0.4 % (0.0-1.5); BG OXYGEN SATURATION 97.4 % (92.0-98.5); BG OXYHEMOGLOBIN 96.6 % (94.0-97.0); BG PCO2 41.7 mmHg (35.0-45.0); BG PH 7.392 (7.350-7.450); BG PO2 117.6 mmHg (75.0-100.0); BG SAMPLE SITE RIGHT RADIAL; BG TOTAL HEMOGLOBIN 7.8 g/dL (12.0-18.0); BG VENT MODE VENT - PRVC
[2021-08-07] MEDS: ENOXAPARIN 80MG/0.8ML SYR SUBCUT SCH (11:23)
[2021-08-07 14:34] LABS: NUCLEATED RED BLOOD CELLS 2 /100 WBC
[2021-08-07 14:35] LABS: PLATELET ESTIMATE NORMAL
[2021-08-07] MEDS: PROPOFOL 10MG/ML 100ML 100 ML IV PRN (17:56)
[2021-08-08] VITALS (99 sets, daily range): BP systolic 84–157; BP diastolic 39–105
[2021-08-08] MEDS: IPRATROPIUM/ALBUTEROL 0.5-3(2.5)MG/3ML NEB HHN SCH ×6 (00:29→20:16)
[2021-08-08] MEDS: MIDAZOLAM HCL 100 MG in SODIUM CHLORIDE 0.9% 80 ML IV PRN ×4 (01:02→22:09)
[2021-08-08] MEDS: ENOXAPARIN 80MG/0.8ML SYR SUBCUT SCH ×2 (01:03→12:17)
[2021-08-08] MEDS: METOCLOPRAMIDE HCL 10MG/2ML VIAL IV SCH ×4 (01:04→17:50)
[2021-08-08] MEDS: FENTANYL CITRATE/PF 2,500 MCG in SODIUM CHLORIDE 0.9% 200 ML IV PRN ×3 (01:57→16:55)
[2021-08-08] MEDS: MEROPENEM 1,000 MG in SODIUM CHLORIDE 0.9% 100 ML IV SCH ×3 (02:14→17:49)
[2021-08-08 06:00] LABS: HEMATOCRIT. 21.9 % (36.0-48.0); HEMOGLOBIN. 7.4 g/dL (12.0-16.0); MEAN CORPUSCULAR HEMOGLOBIN 30.1 pg (28.0-32.0); MEAN CORPUSCULAR VOLUME 89.6 fL (81.0-99.0); MEAN PLATELET VOLUME 8.6 fl (7.4-10.4); PLATELET 262 x1000/uL (130-400); RED BLOOD CELL COUNT 2.45 mill/uL (4.2-5.4); RED CELL DISTRIBUTION WIDTH 15.3 % (11.6-14.6)
[2021-08-08] MEDS: INSULIN LISPRO 100 UNITS/ML SUBCUT SCH ×4 (06:00→17:50)
[2021-08-08 06:03] LABS: CHLORIDE 109 mEq/L (98-107)
[2021-08-08] MEDS: BLOOD SUGAR DIAGNOSTIC STRIP TEST SCH ×4 (06:19→17:20)
[2021-08-08] MEDS: PROPOFOL 10MG/ML 100ML 100 ML IV PRN ×2 (06:38→21:25)
[2021-08-08] MEDS: PHENYLEPHRINE 100 MG in DEXT 5% WATER 240 ML IV PRN (06:42)
[2021-08-08] MEDS: PANTOPRAZOLE SODIUM 40 MG/VIAL IV SCH (09:02)
[2021-08-08 09:03] LABS: BG BASE EXCESS 1.3 mmol/L (-2.0-2.0); BG CARBOXYHEMOGLOBIN 0.9 % (0.5-1.5); BG DEOXYHEMOGLOBIN 10.8 % (0.0-5.0); BG FRACTION INSPIRED OXYGEN 70; BG HCO3 ACT 25.9 mmol/L (22.0-26.0); BG METHEMOGLOBIN 0.2 % (0.0-1.5); BG OXYGEN SATURATION 89.1 % (92.0-98.5); BG OXYHEMOGLOBIN 88.1 % (94.0-97.0); BG PCO2 41.1 mmHg (35.0-45.0); BG PH 7.418 (7.350-7.450); BG PO2 60.6 mmHg (75.0-100.0); BG SAMPLE SITE RIGHT RADIAL; BG TOTAL HEMOGLOBIN 7.7 g/dL (12.0-18.0); BG TOTAL RESPIRATORY RATE 30 b/min; BG VENT MODE PRVC
[2021-08-08] MEDS: DEXAMETHASONE 10 MG/ML VIAL IV SCH (09:03)
[2021-08-08] MEDS: LEVOTHYROXINE SODIUM 50MCG TABLET PO SCH (09:03)
[2021-08-08] MEDS: DOCUSATE SODIUM SUGAR FREE 100MG/10ML UDC NG SCH ×2 (09:03→17:00)
[2021-08-08 17:02] LABS: NUCLEATED RED BLOOD CELLS 1 /100 WBC; PLATELET ESTIMATE NORMAL
[2021-08-09] VITALS (101 sets, daily range): BP systolic 74–158; BP diastolic 21–108
[2021-08-09] MEDS: IPRATROPIUM/ALBUTEROL 0.5-3(2.5)MG/3ML NEB HHN SCH ×6 (00:55→20:27)
[2021-08-09] MEDS: METOCLOPRAMIDE HCL 10MG/2ML VIAL IV SCH ×4 (05:41→18:21)
[2021-08-09] MEDS: ENOXAPARIN 80MG/0.8ML SYR SUBCUT SCH ×2 (05:42→13:05)
[2021-08-09] MEDS: MEROPENEM 1,000 MG in SODIUM CHLORIDE 0.9% 100 ML IV SCH ×3 (05:43→18:21)
[2021-08-09] MEDS: BLOOD SUGAR DIAGNOSTIC STRIP TEST SCH ×2 (05:59)
[2021-08-09] MEDS: INSULIN LISPRO 100 UNITS/ML SUBCUT SCH ×2 (05:59)
[2021-08-09] MEDS: FENTANYL CITRATE/PF 2,500 MCG in SODIUM CHLORIDE 0.9% 200 ML IV PRN ×3 (06:00→16:30)
[2021-08-09 06:03] LABS: CHLORIDE 109 mEq/L (98-107)
[2021-08-09 06:17] LABS: PROTHROMBIN TIME 10.8 sec (9.6-11.0)
[2021-08-09 06:28] LABS: HEPATITIS B SURFACE ANTIGEN NEGATIVE
[2021-08-09 08:07] LABS: BG BASE EXCESS 2.3 mmol/L (-2.0-2.0); BG CARBOXYHEMOGLOBIN 0.5 % (0.5-1.5); BG DEOXYHEMOGLOBIN 1.8 % (0.0-5.0); BG FRACTION INSPIRED OXYGEN 100; BG HCO3 ACT 26.6 mmol/L (22.0-26.0); BG METHEMOGLOBIN 0.2 % (0.0-1.5); BG OXYGEN SATURATION 98.2 % (92.0-98.5); BG OXYHEMOGLOBIN 97.5 % (94.0-97.0); BG PCO2 40.5 mmHg (35.0-45.0); BG PH 7.436 (7.350-7.450); BG SAMPLE SITE RIGHT RADIAL; BG TOTAL HEMOGLOBIN 8.2 g/dL (12.0-18.0); BG VENT MODE VENT - AC/PRVC
[2021-08-09] MEDS: LEVOTHYROXINE SODIUM 50MCG TABLET PO SCH (09:00)
[2021-08-09] MEDS: PANTOPRAZOLE SODIUM 40 MG/VIAL IV SCH (09:00)
[2021-08-09] MEDS: DOCUSATE SODIUM SUGAR FREE 100MG/10ML UDC NG SCH ×2 (09:00→17:00)
[2021-08-09] MEDS: DEXAMETHASONE 10 MG/ML VIAL IV SCH (09:01)
[2021-08-09] MEDS: MIDAZOLAM HCL 100 MG in SODIUM CHLORIDE 0.9% 80 ML IV PRN (09:02)
[2021-08-09] MEDS: PHENYLEPHRINE 100 MG in DEXT 5% WATER 240 ML IV PRN (10:39)
[2021-08-09] MEDS: PROPOFOL 10MG/ML 100ML 100 ML IV PRN ×2 (10:41→18:22)
[2021-08-09] MEDS ORDERED: MIDAZOLAM 100MG/100ML PMX 100 ML IV PRN (12:00)
[2021-08-09] MEDS ORDERED: PROPOFOL 10MG/ML 100ML 100 ML IV PRN (12:00)
[2021-08-09 13:43] LABS: BG BASE EXCESS 2.4 mmol/L (-2.0-2.0); BG CARBOXYHEMOGLOBIN 0.8 % (0.5-1.5); BG DEOXYHEMOGLOBIN 4.6 % (0.0-5.0); BG FRACTION INSPIRED OXYGEN 100; BG METHEMOGLOBIN 0.3 % (0.0-1.5); BG OXYGEN SATURATION 95.3 % (92.0-98.5); BG OXYHEMOGLOBIN 94.3 % (94.0-97.0); BG PCO2 41.8 mmHg (35.0-45.0); BG PH 7.428 (7.350-7.450); BG PO2 80.6 mmHg (75.0-100.0); BG SAMPLE SITE RIGHT RADIAL; BG TOTAL HEMOGLOBIN 8.8 g/dL (12.0-18.0); BG VENT MODE VENT - AC/PRVC
[2021-08-09] MEDS: MIDAZOLAM HCL 100 MG in SODIUM CHLORIDE 0.9% 100 ML IV PRN (18:59)
[2021-08-10] VITALS (98 sets, daily range): BP systolic 55–158; BP diastolic 29–106
[2021-08-10] MEDS: IPRATROPIUM/ALBUTEROL 0.5-3(2.5)MG/3ML NEB HHN SCH ×6 (00:35→20:21)
[2021-08-10] MEDS: METOCLOPRAMIDE HCL 10MG/2ML VIAL IV SCH ×4 (00:40→18:14)
[2021-08-10] MEDS: MEROPENEM 1,000 MG in SODIUM CHLORIDE 0.9% 100 ML IV SCH ×3 (02:16→18:11)
[2021-08-10] MEDS: FENTANYL CITRATE/PF 2,500 MCG in SODIUM CHLORIDE 0.9% 200 ML IV PRN ×3 (02:21→18:11)
[2021-08-10] MEDS: PROPOFOL 10MG/ML 100ML 100 ML IV PRN ×3 (02:22→18:10)
[2021-08-10 06:00] LABS: CHLORIDE 110 mEq/L (98-107)
[2021-08-10 06:07] LABS: HEMATOCRIT. 22.2 % (36.0-48.0); HEMOGLOBIN. 7.5 g/dL (12.0-16.0); MEAN CORPUSCULAR HEMOGLOBIN 30.1 pg (28.0-32.0); MEAN CORPUSCULAR VOLUME 89.9 fL (81.0-99.0); MEAN PLATELET VOLUME 8.4 fl (7.4-10.4); PLATELET 323 x1000/uL (130-400); RED BLOOD CELL COUNT 2.47 mill/uL (4.2-5.4); RED CELL DISTRIBUTION WIDTH 15.3 % (11.6-14.6)
[2021-08-10 06:31] LABS: PROTHROMBIN TIME 10.5 sec (9.6-11.0)
[2021-08-10] MEDS: MIDAZOLAM HCL 100 MG in SODIUM CHLORIDE 0.9% 100 ML IV PRN ×2 (06:33→15:17)
[2021-08-10 08:12] LABS: BG BASE EXCESS 2.6 mmol/L (-2.0-2.0); BG CARBOXYHEMOGLOBIN 0.9 % (0.5-1.5); BG DEOXYHEMOGLOBIN 4.9 % (0.0-5.0); BG FRACTION INSPIRED OXYGEN 100; BG HCO3 ACT 27.5 mmol/L (22.0-26.0); BG METHEMOGLOBIN 0.3 % (0.0-1.5); BG OXYHEMOGLOBIN 93.9 % (94.0-97.0); BG PCO2 44.2 mmHg (35.0-45.0); BG PH 7.412 (7.350-7.450); BG PO2 79.9 mmHg (75.0-100.0); BG SAMPLE SITE RIGHT RADIAL; BG TOTAL HEMOGLOBIN 7.5 g/dL (12.0-18.0); BG VENT MODE PRVC
[2021-08-10 08:45] LABS: NUCLEATED RED BLOOD CELLS 17 /100 WBC
[2021-08-10 08:46] LABS: PLATELET ESTIMATE NORMAL
[2021-08-10] MEDS: DEXAMETHASONE 10 MG/ML VIAL IV SCH (09:52)
[2021-08-10] MEDS: PANTOPRAZOLE SODIUM 40 MG/VIAL IV SCH (09:52)
[2021-08-10] MEDS: DOCUSATE SODIUM SUGAR FREE 100MG/10ML UDC NG SCH ×2 (09:52→18:14)
[2021-08-10] MEDS ORDERED: PROPOFOL 10MG/ML 100ML 100 ML IV PRN (12:30)
[2021-08-10 13:06] LABS: BG BASE EXCESS 0.5 mmol/L (-2.0-2.0); BG CARBOXYHEMOGLOBIN 0.6 % (0.5-1.5); BG DEOXYHEMOGLOBIN 9.7 % (0.0-5.0); BG HCO3 ACT 25.2 mmol/L (22.0-26.0); BG METHEMOGLOBIN 0.1 % (0.0-1.5); BG OXYGEN SATURATION 90.2 % (92.0-98.5); BG OXYHEMOGLOBIN 89.6 % (94.0-97.0); BG PCO2 40.5 mmHg (35.0-45.0); BG PH 7.411 (7.350-7.450); BG PO2 60.9 mmHg (75.0-100.0); BG SAMPLE SITE RIGHT RADIAL; BG TOTAL HEMOGLOBIN 8.4 g/dL (12.0-18.0); BG VENT MODE VENT- PRVC
[2021-08-10] MEDS ORDERED: DEXTROSE 50% WATER 50ML SYRINGE IV PRN (21:30)
[2021-08-11] VITALS (95 sets, daily range): BP systolic 64–161; BP diastolic 24–103
[2021-08-11] MEDS: MIDAZOLAM HCL 100 MG in SODIUM CHLORIDE 0.9% 100 ML IV PRN ×3 (00:06→18:14)
[2021-08-11] MEDS: METOCLOPRAMIDE HCL 10MG/2ML VIAL IV SCH ×4 (00:06→17:20)
[2021-08-11] MEDS: IPRATROPIUM/ALBUTEROL 0.5-3(2.5)MG/3ML NEB HHN SCH ×6 (00:26→20:32)
[2021-08-11] MEDS: MEROPENEM 1,000 MG in SODIUM CHLORIDE 0.9% 100 ML IV SCH ×3 (01:32→17:21)
[2021-08-11] MEDS: FENTANYL CITRATE/PF 2,500 MCG in SODIUM CHLORIDE 0.9% 200 ML IV PRN ×3 (03:25→19:38)
[2021-08-11 06:54] LABS: HEMATOCRIT. 22.8 % (36.0-48.0); HEMOGLOBIN. 7.4 g/dL (12.0-16.0); MEAN CORPUSCULAR HEMOGLOBIN 29.5 pg (28.0-32.0); MEAN CORPUSCULAR VOLUME 91.2 fL (81.0-99.0); MEAN PLATELET VOLUME 8.5 fl (7.4-10.4); PLATELET 296 x1000/uL (130-400); RED CELL DISTRIBUTION WIDTH 15.3 % (11.6-14.6)
[2021-08-11 07:19] LABS: INR 1.1; PROTHROMBIN TIME 11.6 sec (9.6-11.0)
[2021-08-11] MEDS: INSULIN LISPRO 100 UNITS/ML SUBCUT SCH ×4 (08:20→22:18)
[2021-08-11] MEDS ORDERED: INSULIN LISPRO 100 UNITS/ML SUBCUT SCH (08:20)
[2021-08-11] MEDS: BLOOD SUGAR DIAGNOSTIC STRIP TEST SCH ×4 (08:33→22:18)
[2021-08-11] MEDS: PANTOPRAZOLE SODIUM 40 MG/VIAL IV SCH (09:15)
[2021-08-11] MEDS: DOCUSATE SODIUM SUGAR FREE 100MG/10ML UDC NG SCH ×2 (09:15→17:21)
[2021-08-11] MEDS: POLYETHYLENE GLYCOL 3350 (17GM) 1 DOSE PACK PO SCH (09:16)
[2021-08-11] MEDS: DEXAMETHASONE 10 MG/ML VIAL IV SCH (09:16)
[2021-08-11 09:34] LABS: BG CARBOXYHEMOGLOBIN 0.2 % (0.5-1.5); BG DEOXYHEMOGLOBIN 1.5 % (0.0-5.0); BG FRACTION INSPIRED OXYGEN 100; BG HCO3 ACT 23.1 mmol/L (22.0-26.0); BG METHEMOGLOBIN 0.2 % (0.0-1.5); BG OXYGEN SATURATION 98.5 % (92.0-98.5); BG OXYHEMOGLOBIN 98.1 % (94.0-97.0); BG PCO2 40.7 mmHg (35.0-45.0); BG PH 7.372 (7.350-7.450); BG PO2 157.4 mmHg (75.0-100.0); BG SAMPLE SITE RIGHT RADIAL; BG VENT MODE VENT - P/C
[2021-08-11 10:16] LABS: NUCLEATED RED BLOOD CELLS 18 /100 WBC; PLATELET ESTIMATE NORMAL
[2021-08-11] MEDS: RIFAXIMIN 550 MG TABLET PO SCH ×2 (10:36→20:57)
[2021-08-11] MEDS: LACTULOSE 20G/30ML UDC PO SCH ×2 (14:00→22:13)
[2021-08-12] VITALS (101 sets, daily range): BP systolic 52–190; BP diastolic 14–127
[2021-08-12] MEDS: METOCLOPRAMIDE HCL 10MG/2ML VIAL IV SCH ×4 (00:14→18:00)
[2021-08-12] MEDS: IPRATROPIUM/ALBUTEROL 0.5-3(2.5)MG/3ML NEB HHN SCH ×5 (00:52→15:51)
[2021-08-12] MEDS: MIDAZOLAM HCL 100 MG in SODIUM CHLORIDE 0.9% 100 ML IV PRN ×3 (02:23→18:10)
[2021-08-12] MEDS: FENTANYL CITRATE/PF 2,500 MCG in SODIUM CHLORIDE 0.9% 200 ML IV PRN ×3 (03:12→18:11)
[2021-08-12] MEDS: LACTULOSE 20G/30ML UDC PO SCH ×3 (05:50→22:11)
[2021-08-12 06:00] LABS: HEMATOCRIT. 22.3 % (36.0-48.0); HEMOGLOBIN. 7.3 g/dL (12.0-16.0); MEAN CORPUSCULAR HEMOGLOBIN 29.4 pg (28.0-32.0); MEAN CORPUSCULAR VOLUME 89.8 fL (81.0-99.0); MEAN PLATELET VOLUME 8.6 fl (7.4-10.4); PLATELET 280 x1000/uL (130-400); RED BLOOD CELL COUNT 2.48 mill/uL (4.2-5.4); RED CELL DISTRIBUTION WIDTH 15.2 % (11.6-14.6)
[2021-08-12 06:11] LABS: INR 1.1; PROTHROMBIN TIME 11.7 sec (9.6-11.0)
[2021-08-12] MEDS: BLOOD SUGAR DIAGNOSTIC STRIP TEST SCH ×4 (07:50→21:24)
[2021-08-12] MEDS: INSULIN LISPRO 100 UNITS/ML SUBCUT SCH ×4 (08:20→21:00)
[2021-08-12] MEDS: PANTOPRAZOLE SODIUM 40 MG/VIAL IV SCH (08:54)
[2021-08-12] MEDS: DEXAMETHASONE 10 MG/ML VIAL IV SCH (08:55)
[2021-08-12] MEDS: RIFAXIMIN 550 MG TABLET PO SCH ×2 (08:55→22:11)
[2021-08-12] MEDS: POLYETHYLENE GLYCOL 3350 (17GM) 1 DOSE PACK PO SCH (08:56)
[2021-08-12] MEDS: DOCUSATE SODIUM SUGAR FREE 100MG/10ML UDC NG SCH ×2 (08:56→17:00)
[2021-08-12] MEDS: PHENYLEPHRINE 100 MG in DEXT 5% WATER 240 ML IV PRN ×2 (09:00→17:06)
[2021-08-12 10:02] LABS: NUCLEATED RED BLOOD CELLS 2 /100 WBC; PLATELET ESTIMATE NORMAL
[2021-08-12] MEDS: PROPOFOL 10MG/ML 100ML 100 ML IV PRN ×3 (11:00→19:50)
[2021-08-12 11:11] LABS: BG BASE EXCESS -1.7 mmol/L (-2.0-2.0); BG CARBOXYHEMOGLOBIN 0.2 % (0.5-1.5); BG DEOXYHEMOGLOBIN 14.2 % (0.0-5.0); BG HCO3 ACT 24.5 mmol/L (22.0-26.0); BG METHEMOGLOBIN 0.5 % (0.0-1.5); BG OXYGEN SATURATION 85.7 % (92.0-98.5); BG OXYHEMOGLOBIN 85.1 % (94.0-97.0); BG PCO2 48.7 mmHg (35.0-45.0); BG PO2 59.1 mmHg (75.0-100.0); BG SAMPLE SITE RIGHT RADIAL; BG TOTAL HEMOGLOBIN 8.7 g/dL (12.0-18.0); BG VENT MODE VENT - P/C
[2021-08-12] MEDS ORDERED: SODIUM POLYSTYRENE SULFONATE 15 G/60 ML BOT PO NR (12:00)
[2021-08-12] MEDS: MIDODRINE HCL 5MG TABLET PO SCH ×2 (13:36→17:04)
[2021-08-12 20:31] LABS: BG BASE EXCESS -11.7 mmol/L (-2.0-2.0); BG CARBOXYHEMOGLOBIN 0.3 % (0.5-1.5); BG DEOXYHEMOGLOBIN 11.7 % (0.0-5.0); BG FRACTION INSPIRED OXYGEN 100; BG HCO3 ACT 15.5 mmol/L (22.0-26.0); BG METHEMOGLOBIN 0.4 % (0.0-1.5); BG OXYGEN SATURATION 88.2 % (92.0-98.5); BG OXYHEMOGLOBIN 87.6 % (94.0-97.0); BG PCO2 40.5 mmHg (35.0-45.0); BG PH 7.201 (7.350-7.450); BG PO2 75.7 mmHg (75.0-100.0); BG SAMPLE SITE RIGHT BRACHIAL; BG TOTAL HEMOGLOBIN 9.3 g/dL (12.0-18.0); BG VENT MODE VENT - P/C
[2021-08-12] MEDS ORDERED: SODIUM BICARBONATE 8.4% 1 MEQ/ML 50ML SYR IV NR (21:45)
[2021-08-13] VITALS (49 sets, daily range): BP systolic 44–204; BP diastolic 16–142
[2021-08-13] MEDS: IPRATROPIUM/ALBUTEROL 0.5-3(2.5)MG/3ML NEB HHN SCH ×4 (00:56→11:51)
[2021-08-13] MEDS: METOCLOPRAMIDE HCL 10MG/2ML VIAL IV SCH ×3 (01:14→12:37)
[2021-08-13] MEDS: MIDAZOLAM HCL 100 MG in SODIUM CHLORIDE 0.9% 100 ML IV PRN ×3 (01:15→15:28)
[2021-08-13 01:19] LABS: CHLORIDE 111 mEq/L (98-107)
[2021-08-13] MEDS: PROPOFOL 10MG/ML 100ML 100 ML IV PRN ×2 (01:20→09:33)
[2021-08-13] MEDS: FENTANYL CITRATE/PF 2,500 MCG in SODIUM CHLORIDE 0.9% 200 ML IV PRN ×3 (01:46→15:32)
[2021-08-13] MEDS: PHENYLEPHRINE 100 MG in DEXT 5% WATER 240 ML IV PRN ×2 (04:08→12:38)
[2021-08-13] MEDS: LACTULOSE 20G/30ML UDC PO SCH ×2 (05:45→12:37)
[2021-08-13 06:04] LABS: HEMATOCRIT. 30.9 % (36.0-48.0); HEMOGLOBIN. 9.6 g/dL (12.0-16.0); MEAN CORPUSCULAR HEMOGLOBIN 30.3 pg (28.0-32.0); MEAN CORPUSCULAR VOLUME 97.6 fL (81.0-99.0); MEAN PLATELET VOLUME 8.4 fl (7.4-10.4); PLATELET 361 x1000/uL (130-400); RED BLOOD CELL COUNT 3.17 mill/uL (4.2-5.4); RED CELL DISTRIBUTION WIDTH 17.7 % (11.6-14.6)
[2021-08-13 06:49] LABS: INR 1.3; PROTHROMBIN TIME 13.9 sec (9.6-11.0)
[2021-08-13] MEDS ORDERED: INSULIN REGULAR (HUMULIN R) 300UNITS/3ML VIAL SUBCUT NR (07:00)
[2021-08-13] MEDS ORDERED: DEXTROSE 50% WATER 50ML SYRINGE IV NR (07:00)
[2021-08-13] MEDS ORDERED: METRONIDAZOLE 500 MG PREMIX 100 ML IV SCH (07:30)
[2021-08-13] MEDS: BLOOD SUGAR DIAGNOSTIC STRIP TEST SCH ×2 (08:15→12:22)
[2021-08-13] MEDS: RIFAXIMIN 550 MG TABLET PO SCH (08:15)
[2021-08-13] MEDS: INSULIN LISPRO 100 UNITS/ML SUBCUT SCH ×2 (08:15→13:12)
[2021-08-13] MEDS: MIDODRINE HCL 5MG TABLET PO SCH ×2 (08:16→12:37)
[2021-08-13] MEDS: DOCUSATE SODIUM SUGAR FREE 100MG/10ML UDC NG SCH (08:17)
[2021-08-13] MEDS: PANTOPRAZOLE SODIUM 40 MG/VIAL IV SCH (08:17)
[2021-08-13] MEDS: DEXAMETHASONE 10 MG/ML VIAL IV SCH (08:17)
[2021-08-13] MEDS: POLYETHYLENE GLYCOL 3350 (17GM) 1 DOSE PACK PO SCH (08:17)
[2021-08-13] MEDS ORDERED: CEFEPIME 2,000 MG in DEXT 5% WATER 100 ML IV SCH (09:00)
[2021-08-13] MEDS ORDERED: NOREPINEPHRINE 32 MG in DEXT 5% WATER 218 ML IV PRN (09:15)
[2021-08-13] MEDS: METRONIDAZOLE 500MG TABLET PO SCH ×2 (09:31→12:37)
[2021-08-13] MEDS ORDERED: SODIUM BICARBONATE 8.4% 1 MEQ/ML 50ML SYR IV ONE (09:34)
[2021-08-13] MEDS ORDERED: AMIODARONE HCL 50MG/ML 3ML VIAL IV ONE (09:34)
[2021-08-13] MEDS ORDERED: CALCIUM CHLORIDE 1GM/10ML SYR IV ONE (09:34)
[2021-08-13] MEDS ORDERED: EPINEPHRINE 0.1MG/ML (1:10,000) 10ML SYR ONE (09:34)
[2021-08-13] MEDS ORDERED: SODIUM BICARBONATE 150 MEQ in DEXTROSE 5% WATER 1,000 ML IV SCH ×2 (11:45→12:30)
[2021-08-13 11:48] LABS: BG BASE EXCESS -18.2 mmol/L (-2.0-2.0); BG HCO3 ACT 14.9 mmol/L (22.0-26.0); BG PCO2 69.8 mmHg (35.0-45.0); BG PH 6.948 (7.350-7.450); BG PO2 49.5 mmHg (75.0-100.0)
[2021-08-13] MEDS ORDERED: SODIUM BICARBONATE 8.4% 1 MEQ/ML 50ML SYR IV NR (12:00)
[2021-08-13] MEDS ORDERED: VASOPRESSIN 20 UNIT in SODIUM CHLORIDE 0.9% 99 ML IV PRN (12:00)
[2021-08-13] MEDS ORDERED: CALCIUM GLUCONATE 1GM PREMIX 50 ML IV NR (12:30)
[2021-08-13] MEDS ORDERED: SODIUM POLYSTYRENE SULFONATE 15 G/60 ML BOT PO NR (12:30)
[2021-08-13 12:42] LABS: NUCLEATED RED BLOOD CELLS 9 /100 WBC; PLATELET ESTIMATE NORMAL
[2021-08-13 15:24] LABS: BG BASE EXCESS -16.1 mmol/L (-2.0-2.0); BG DEOXYHEMOGLOBIN 6.5 % (0.0-5.0); BG HCO3 ACT 15.3 mmol/L (22.0-26.0); BG METHEMOGLOBIN 0.5 % (0.0-1.5); BG OXYGEN SATURATION 93.5 % (92.0-98.5); BG PCO2 65.5 mmHg (35.0-45.0); BG PH 6.986 (7.350-7.450); BG PO2 91.5 mmHg (75.0-100.0); BG SAMPLE SITE RIGHT RADIAL; BG TOTAL HEMOGLOBIN 10.5 g/dL (12.0-18.0); BG VENT MODE VENT - P/C
[2021-08-13] MEDS ORDERED: ENOXAPARIN 80MG/0.8ML SYR SUBCUT SCH (21:00)
[2021-08-30] MEDS ORDERED: FENTANYL CITRATE/PF 2,500 MCG in SODIUM CHLORIDE 0.9% 200 ML IV PRN (12:00)
== END 2021-08-13 18:30 | DRG 720 ==
LOC: ER 12:59 → 7WST 18:37 → ENRESERV 19:14 → 7WST 07-18 15:42 → MICUSO 07-21 23:10 → CVICU 07-28 16:00
PROVIDERS: ADMIT Internal Medicine; ATTEND Internal Medicine
PROC: 5A09457 Assistance with Respiratory Ventilation, 24-96 Consecutive Hours, Continuous Positive Airway Pressure (ICD-10-PCS; 2021-07-19)
PROC: 5A1955Z Respiratory Ventilation, Greater than 96 Consecutive Hours (ICD-10-PCS; principal; 2021-07-22)
PROC: 02HV33Z Insertion of Infusion Device into Superior Vena Cava, Percutaneous Approach (ICD-10-PCS; 2021-07-22)
PROC: B548ZZA Ultrasonography of Superior Vena Cava, Guidance (ICD-10-PCS; 2021-07-22)
PROC: 0BH17EZ Insertion of Endotracheal Airway into Trachea, Via Natural or Artificial Opening (ICD-10-PCS; 2021-07-22)
PROC: 5A2204Z Restoration of Cardiac Rhythm, Single (ICD-10-PCS; 2021-08-13)
PROC: 5A12012 Performance of Cardiac Output, Single, Manual (ICD-10-PCS; 2021-08-13)
DX: A41.89 Other specified sepsis (principal); K72.00 Acute and subacute hepatic failure without coma; N17.0 Acute kidney failure with tubular necrosis; J12.82 Pneumonia due to coronavirus disease 2019; R65.21 Severe sepsis with septic shock; E43 Unspecified severe protein-calorie malnutrition; U07.1 COVID-19; J80 Acute respiratory distress syndrome; G93.41 Metabolic encephalopathy; J98.2 Interstitial emphysema; I46.9 Cardiac arrest, cause unspecified; E03.9 Hypothyroidism, unspecified; E11.9 Type 2 diabetes mellitus without complications; Z88.5 Allergy status to narcotic agent; I10 Essential (primary) hypertension; D64.9 Anemia, unspecified; I82.412 Acute embolism and thrombosis of left femoral vein; Z68.32 Body mass index [BMI] 32.0-32.9, adult; E87.0 Hyperosmolality and hypernatremia; E87.5 Hyperkalemia; K59.00 Constipation, unspecified; Z78.1 Physical restraint status; Z99.11 Dependence on respirator [ventilator] status; R00.1 Bradycardia, unspecified; D89.839 Cytokine release syndrome, grade unspecified; S09.91XA Unspecified injury of ear, initial encounter; X58.XXXA Exposure to other specified factors, initial encounter; Y93.89 Activity, other specified; Y92.89 Other specified places as the place of occurrence of the external cause; Y99.8 Other external cause status
CPT/HCPCS: 36415; 36573; 36600; 71045; 71275; 74018; 76700; 80048; 80053; 80061; 80076; 82040; 82140; 82375; 82728; 82805; 82962; 83036; 83540; 83550; 83615; 83735; 83880; 84132; 84134; 84145; 84443; 84478; 84484; 85025; 85044; 86141; 86705; 86709; 86803; 87070; 87340; 87426; 92950; 93005; 93306; 93970; 94002; 94003; 94640; 94660; 94760; 99291; A6261; C1725; C1769; C1893; C9113; J0282; J0330; J0360; J0456; J0461; J0610; J0692; J0696; J1100; J1200; J1650; J1815; J1885; J2185; J2250; J2370; J2405; J2704; J2765; J3010; J3490; J7040; J7050; J7060; J7070; Q9967; U0003; U0005; A4315